=== PATIENT | female | born 1970 | race Caucasian/White ===

== ENCOUNTER → 2018-08-21 17:22 | Outpatient (CLI) | payer OTHER, SELFPAY ==
[2018-08-21 18:51] LABS: Basophils # 0.1 K/mm3 (0-0.2); Basophils % 0.5 % (0.1-2.0); Eosinophils # 0.2 K/mm3 (0.0-0.4); Eosinophils % 1.7 % (0.1-12.0); Hematocrit 44.2 % (37.0-47.0); Hemoglobin 14.1 g/dL (12.2-16.2); Lymphocytes # 3.2 K/mm3 (0.7-4.5); Lymphocytes % 28.6 % (10-50); Mean Corpuscular Hemoglobin 29.7 pg (27.0-31.2); Mean Corpuscular Volume 92.8 fl (81-99); Mean Platelet Volume 8.7 fl (7.4-10.4); Monocytes # 0.6 K/mm3 (0.1-1.0); Monocytes % 5.3 % (1.7-9.3); Neutrophils # 7.1 K/mm3 (1.8-7.8); Neutrophils % 63.9 % (37.0-80.0); Platelet Count 272 K/mm3 (142-424); Red Blood Count 4.76 M/mm3 (4.20-5.40); Red Cell Distribution Width 13.7 % (11.5-17.5); White Blood Count 11.1 K/mm3 (4.8-10.8)
[2018-08-21 19:08] LABS: Alanine Aminotransferase 36 U/L (12-78); Albumin Level 3.3 gm/dL (3.4-5.0); Albumin/Globulin Ratio 0.7 (1.1-1.8); Alkaline Phosphatase 61 U/L (46-116); Anion Gap 12.7 mEq/L (5-15); Aspartate Amino Transferase 17 U/L (15-37); Bilirubin,Total 0.5 mg/dL (0.2-1.0); Blood Urea Nitrogen 12 mg/dL (7-18); Calcium 9.2 mg/dL (8.5-10.1); Carbon Dioxide 30 mmol/L (21.0-32.0); Chloride 102 mmol/L (98-107); Chol/HDL Ratio 3.5 (1-3.5); Cholesterol 152 mg/dL (140-200); Estimated Glomerular Filt Rate 90 ml/min (>60); GFR (African American) 109 ML/MIN (>60); Globulin 4.7 gm/dl (1.3-3.2); Glucose 78 mg/dL (74-106); HDL Cholesterol 44 mg/dL (29-89); LDL Cholesterol 92 mg/dL (0-130); Potassium 3.7 mmoL/L (3.5-5.1); Sodium 141 mmol/L (136-145); T4 (Thyroxine) 9.1 ug/dl (4.7-13.3); Thyroid Stimulating Hormone 2.73 uIU/ml (0.358-3.740); Triglycerides 79 mg/dL (30-200); VLDL Cholesterol 16 mg/dL (0-40)
[2018-08-25 09:33] LABS: Vitamin D 25 Hydroxy 30.4 ng/mL (30.0-100.0)
== END ==
PROVIDERS: Visit Provider Nurse Practitioner Family
DX: I10 Essential (primary) hypertension (principal)
CPT/HCPCS: 80053; 80061; 82652; 84436; 84443; 85025

== ENCOUNTER → 2018-09-18 14:11 | Outpatient (CLI) | payer OTHER, SELFPAY | PROVIDERS: PCP Emergency Medicine; Visit Provider Internal Medicine | DX: R06.02 Shortness of breath (principal) | CPT/HCPCS: 93306 ==

== ENCOUNTER → 2018-10-02 10:11 | Outpatient (CLI) | payer OTHER, SELFPAY ==
[2018-10-02 11:32] LABS: Blood Urea Nitrogen 17 mg/dL (7-18); Carbon Dioxide 31 mmol/L (21.0-32.0); Chloride 102 mmol/L (98-107); Estimated Glomerular Filt Rate 67 ml/min (>60); GFR (African American) 81 ML/MIN (>60); Glucose 88 mg/dL (74-106); Sodium 141 mmol/L (136-145)
== END ==
PROVIDERS: Visit Provider Physician Assistant
DX: I10 Essential (primary) hypertension (principal); R06.02 Shortness of breath; R60.9 Edema, unspecified
CPT/HCPCS: 36415; 80048

== ENCOUNTER → 2018-11-10 12:38 | Outpatient (CLI) | payer OTHER, SELFPAY | PROVIDERS: PCP Nurse Practitioner Family; Visit Provider Internal Medicine Cardiovascular Disease | DX: I10 Essential (primary) hypertension (principal); R06.02 Shortness of breath; R40.0 Somnolence; R60.0 Localized edema; G47.33 Obstructive sleep apnea (adult) (pediatric) | CPT/HCPCS: 95806 ==

== ENCOUNTER → 2019-01-08 09:51 | Outpatient (CLI) | payer OTHER, SELFPAY ==
[2019-01-08 13:47] LABS: Anion Gap 12.2 mEq/L (5-15); Blood Urea Nitrogen 13 mg/dL (7-18); Calcium 9.4 mg/dL (8.5-10.1); Carbon Dioxide 29 mmol/L (21.0-32.0); Chloride 103 mmol/L (98-107); Creatinine,Serum 0.96 mg/dL (0.55-1.02); Estimated Glomerular Filt Rate 62 ml/min (>60); GFR (African American) 75 ML/MIN (>60); Glucose 110 mg/dL (74-106); Potassium 4.2 mmoL/L (3.5-5.1); Sodium 140 mmol/L (136-145)
== END ==
PROVIDERS: Visit Provider Internal Medicine Cardiovascular Disease
DX: R06.02 Shortness of breath (principal); I10 Essential (primary) hypertension; G47.33 Obstructive sleep apnea (adult) (pediatric); R60.0 Localized edema
CPT/HCPCS: 36415; 80048

== ENCOUNTER → 2019-01-13 14:57 | Outpatient (CLI) | payer OTHER, SELFPAY | PROVIDERS: PCP Nurse Practitioner Family; Visit Provider Nurse Practitioner Family | DX: G47.33 Obstructive sleep apnea (adult) (pediatric) (principal) | CPT/HCPCS: 94762 ==

== ENCOUNTER → 2019-02-24 14:15 | Outpatient (CLI) | payer OTHER, SELFPAY ==
[2019-02-24 14:41] LABS: Amphetamine/Metha Screen,Urine Negative ng/mL (<1000); Barbiturates Screen,Urine Negative ng/mL (<200); Benzodiazepines Screen,Urine Negative ng/mL (<200); Cannabinoid Screen,Urine Negative ng/mL (<50); Cocaine Screen,Urine Negative ng/mL (<300); Methadone Screen,Urine Negative ng/mL (<300); Opiate Screen,Urine Negative ng/mL (<300); Phencyclidine Screen,Urine Negative ng/mL (<25)
== END ==
PROVIDERS: Visit Provider Nurse Practitioner Family
DX: E66.9 Obesity, unspecified (principal)
CPT/HCPCS: 80305

== ENCOUNTER → 2019-08-31 11:42 | Outpatient (CLI) | payer OTHER, SELFPAY ==
[2019-08-31 13:23] LABS: Anion Gap 10.8 mEq/L (5-15); Blood Urea Nitrogen 14 mg/dL (7-18); Calcium 8.9 mg/dL (8.5-10.1); Carbon Dioxide 31 mmol/L (21.0-32.0); Chloride 106 mmol/L (98-107); Creatinine,Serum 0.93 mg/dL (0.55-1.02); Estimated Glomerular Filt Rate 64 ml/min (>60); GFR (African American) 78 ML/MIN (>60); Glucose 89 mg/dL (74-106); Potassium 3.8 mmoL/L (3.5-5.1); Sodium 144 mmol/L (136-145)
== END ==
PROVIDERS: Physician Assistant; Visit Provider Urology
DX: G47.33 Obstructive sleep apnea (adult) (pediatric) (principal); I10 Essential (primary) hypertension; R60.9 Edema, unspecified
CPT/HCPCS: 36415; 80048; 83880

== ENCOUNTER → 2019-09-09 07:49 | Outpatient (CLI) | payer OTHER, SELFPAY ==
--- NOTE | 2019-09-09 07:54 | CA_ITS ---
APPROVED REPORT Panel Flow Machine Operator: Aye Christensen RVT Study Quality: Adequate Indications: sob,edema,HTN Risk Factors Hypertension Obesity Renal Artery Doppler Origin (R) 172.1/ cm/sec Proximal (R) 136.9/ cm/sec Mid (R) 110.4/ cm/sec Distal (R) 122.3/ cm/sec Renal Aorta Ratio (R) 2.03 Segmental A. (R) 29.2/12.9 cm/sec RI: 0.55 Segmental A. Sup (R) 29.2/12.9 cm/sec Segmental A. Mid (R) 25.9/13.3 cm/sec Segmental A. Inf (R) 18.5/8.9 cm/sec Origin (L) 104.7/ cm/sec Proximal (L) 109.7/ cm/sec Mid (L) 82.4/ cm/sec Distal (L) 70.6/ cm/sec Renal Aorta Ratio (L) 1.29 Segmental A. (L) 50.8/16.7 cm/sec RI: 0.67 Segmental A. Sup (L) 50.8/16.7 cm/sec Segmental A. Mid (L) 41.6/16.7 cm/sec Segmental A. Inf (L) 32.5/13.5 cm/sec Renal Measurements Kidney Size (R) 10.0x8.2 cm Cortical Thickness (R) 1.2 cm Kidney Size (L) 10.4x7.4 cm Cortical Thickness (L) 1.7 cm Conclusion Study suggests no evidence of bilateral renal artery stenosis. Electronically signed by : Galen Feliz MD 09/11/2019 17:11:07
--- NOTE | 2019-09-09 07:54 | CA_ITS ---
APPROVED REPORT EXAM: Comprehensive 2D, Doppler, and color-flow Echocardiogram Flour Mixer Helper: Pili Santana RT(R) Ht: 5 ft 7 in Wt: 288lbs BSA: 2.36 BP: 117/96 mmHg Indications: Edema, HTN, obesity, CLEO, SOB 2D Dimensions LVOT 1.80 cm (M/F) 1.5-2.5 M-Mode Dimensions RVDd 3.14 cm (0.9-2.6) LVDd 5.11 cm (3.5-5.7) LVDs 3.18 cm (3.5-5.7) IVSd 1.03 cm (0.6-1.1) PWd 0.99 cm (0.6-1.1) EF (Teich) 67.60% FS 37.80% EDV (Teich) 124.40 mL ESV (Teich) 40.30 mL LV Diastology E/A Ratio 1.24 Mitral Valve MV A Velocity 75.00 (40-130 cm/s) Left Ventricle Left atrium is mildly enlarged, left ventricle is normal size, mild concentric left ventricular hypertrophy, visually estimated ejection fraction 55% with no regional wall motion abnormality. Grade 1 diastolic dysfunction seen without tissue Doppler evidence of raise left atrial pressure. Right Ventricle Right atrium and right ventricle mildly enlarged with normal contractility. Aortic Valve Aortic valve is grossly normal, there is no aortic stenosis aortic insufficiency. Mitral Valve Mitral valve is grossly normal, there is mild mitral regurgitation. Tricuspid Valve Tricuspid valve is grossly normal, there is mild tricuspid rotation. Pulmonic Valve Pulmonic valve is poorly visualized. Great Vessels Aortic root is normal size. Pericardium No significant pericardial effusion noted. Conclusion 1. Mild biatrial enlargement, normal left ventricular size, mild concentric left ventricular hypertrophy, visually estimated ejection fraction 55% with no regional wall motion abnormality, grade 1 diastolic dysfunction seen without tissue Doppler evidence of raise left atrial pressure. 2. Mildly enlarged right ventricle with normal contractility. 3. Mild mitral and tricuspid regurgitation. 4. No significant pericardial effusion noted. Electronically signed by : Darci Crowe, 09/10/2019 15:48:45
== END ==
PROVIDERS: PCP Emergency Medicine; Visit Provider Urology
DX: R06.02 Shortness of breath (principal); I10 Essential (primary) hypertension; R60.9 Edema, unspecified
CPT/HCPCS: 93306; 93976

== ENCOUNTER → 2019-09-21 14:17 | Outpatient (CLI) | payer OTHER, SELFPAY ==
[2019-09-21 15:46] LABS: Blood Urea Nitrogen 14 mg/dL (7-18); Calcium 9.1 mg/dL (8.5-10.1); Carbon Dioxide 31 mmol/L (21.0-32.0); Chloride 104 mmol/L (98-107); Creatinine,Serum 0.86 mg/dL (0.55-1.02); Estimated Glomerular Filt Rate 70 ml/min (>60); GFR (African American) 85 ML/MIN (>60); Glucose 115 mg/dL (74-106); Sodium 143 mmol/L (136-145)
== END ==
PROVIDERS: Visit Provider Nurse Practitioner Family
DX: G47.33 Obstructive sleep apnea (adult) (pediatric) (principal); I10 Essential (primary) hypertension
CPT/HCPCS: 36415; 80048

== ENCOUNTER → 2020-08-31 09:26 | Outpatient (CLI) | payer OTHER, SELFPAY ==
--- NOTE | 2020-08-31 09:27 | CT_ITS ---
PROCEDURE: CT HEAD/BRAIN WO/W CON CLINICAL INDICATION: Gradual hearing loss with ear pain COMPARISON: No exams were available for comparison TECHNIQUE: IV Contrast: 100ML Isovue 370 Axial images obtained. All CT scans at the facility use one or more dose reduction, viz: automated exposure control, ma/kV adjustment per patient size (including targeted exams where dose is matched to indication, i.e. head), or iterative reconstruction technique. FINDINGS: No midline shift, mass effect, intracranial hemorrhage, hydrocephalus, or extra-axial fluid collection is evident. No enhancing lesions are evident. The skull base has an unremarkable appearance. The temporal bones are included on this exam per routine CT head protocol however, this does not represent a temporal bone CT which would be performed with different technique.. No mastoid effusion is evident. The calvarium has an unremarkable appearance. There is mild mucosal thickening of the maxillary and ethmoid sinuses. IMPRESSION: Negative CT head without and with contrast Mild sinus disease Dictated by: Galen Feliz MD 08/31/2020 19:03 Galen Feliz MD in [place] 08/31/2020 19:03
--- NOTE | 2020-08-31 09:31 | MM_ITS ---
PROCEDURE: MM DIG SCREENING MAMM BI W/CAD Referring Doctor: Landry Al Patient Age:49Y CLINICAL INDICATION: screening no hormones. No new complaints family history-noncontributory COMPARISON: MG DMSB DIG MAMM-SCREEN GWENDOLYN from 01/24/2015 TECHNIQUE: Standard CC and MLO images were obtained. R2 CAD reviewed. Bilateral digital breast tomosynthesis included. FINDINGS: Minimal residual fibroglandular elements with of moderate diffuse fatty replacement yielding lower density breast. Mammography tends to be more optimal screening tool in breast of this lower density. But there is some very minor observations bilaterally which I believe are most likely stable features but would benefit from six-month follow-up to confirm stability Right breast stable mammogram with no new areas of significant concern. Only note a subtle barely evident tiny up to 5 mm low-density nodule which is likely small oil cyst (or possibly tiny intramammary node) given its central low-density/fat density. This is located superior breast retroareolar region and most notable on today's cc tomosynthesis image this 62.. This was only questionably appreciable on previous study but this may be due to its low-density along with small size. Left breast Small 5 mm triangular density central breast I believe is a stable feature since previous CC image; although similar size it is slightly more evident on today's CC view and CC tomosynthesis image 51. However I believe it is a stable density and appears to dissipate on the MLO views.. . Follow-up in 6 months for to verify stability for both of these above small/subtle areas would be of benefit and suggested IMPRESSION: No prominent Findings . Only very minor observations bilaterally which I believe are most likely stable benign features-. However since they are slightly more evident and apparent on today mammogram&tomosynthesis images, suggest six-month follow-up to fully confirm stability BI-RAD Category: 3 Probably Benign Finding Short Term Follow-up FOLLOW-UP: 6M 6 Month Follow-up the the the (A letter has been sent to the patient regarding results of the study.) Dictated by: Bernabe Ruth MD 09/03/2020 13:08 Bernabe Ruth MD in [place] 09/03/2020 13:08
== END ==
PROVIDERS: PCP Emergency Medicine; Visit Provider Otolaryngology
DX: D33.3 Benign neoplasm of cranial nerves (principal); H90.5 Unspecified sensorineural hearing loss; Z12.31 Encounter for screening mammogram for malignant neoplasm of breast
CPT/HCPCS: 70470; 77063; 77067; Q9967

== ENCOUNTER → 2020-10-19 07:05 | Outpatient (CLI) | payer OTHER, SELFPAY ==
[2020-10-19 07:49] LABS: Basophils # 0.1 K/mm3 (0-0.2); Basophils % 0.7 % (0.1-2.0); Eosinophils # 0.1 K/mm3 (0.0-0.4); Eosinophils % 2.1 % (0.1-12.0); Hematocrit 41.7 % (37.0-47.0); Hemoglobin 13.2 g/dL (12.2-16.2); Lymphocytes # 2.4 K/mm3 (0.7-4.5); Mean Corpuscular HGB Conc 31.6 g/dL (31.8-35.4); Mean Corpuscular Hemoglobin 29.4 pg (27.0-31.2); Monocytes # 0.4 K/mm3 (0.1-1.0); Monocytes % 5.7 % (1.7-9.3); Neutrophils # 3.8 K/mm3 (1.8-7.8); Neutrophils % 56.5 % (37.0-80.0); Platelet Count 248 K/mm3 (142-424); Red Blood Count 4.48 M/mm3 (4.20-5.40); Red Cell Distribution Width 13.2 % (11.5-17.5); White Blood Count 6.8 K/mm3 (4.8-10.8)
[2020-10-19 08:05] LABS: Alanine Aminotransferase 41 U/L (12-78); Albumin Level 4.2 g/dl (3.5-5.0); Alkaline Phosphatase 52 U/L (38-126); Anion Gap 9.2 mEq/L (5-15); Aspartate Amino Transferase 36 U/L (14-36); Bilirubin,Direct 0.1 mg/dl (0.0-0.4); Bilirubin,Indirect 0.6 mg/dL (0.0-0.9); Bilirubin,Total 0.7 mg/dl (0.2-1.3); Bilirubin,Unconjugated 0.6 mg/dL (0.0-1.1); Blood Urea Nitrogen 19 mg/dl (7-17); Calcium 9.5 mg/dl (8.4-10.2); Carbon Dioxide 32 mmol/L (22.0-30.0); Chloride 103 mmol/L (98-107); Chol/HDL Ratio 3.4 (1-3.5); Cholesterol 146 mg/dl (140-200); Estimated Glomerular Filt Rate 66 ml/min (>60); GFR (African American) 80 ML/MIN (>60); Glucose 110 mg/dl (74-100); HDL Cholesterol 43 mg/dl (40-60); Potassium 4.2 mmoL/L (3.5-5.1); Sodium 140 mmol/L (136-145); Total Protein,Serum 7.6 g/dl (6.3-8.2); Triglycerides 105 mg/dl (30-150); VLDL Cholesterol 21 mg/dL (0-40)
[2020-10-19 08:17] LABS: Direct LDL Cholesterol 86.39 mg/dL (100-129)
[2020-10-19 09:37] LABS: Hemoglobin A1C 5.4 % (4.0-6.0)
== END ==
PROVIDERS: Visit Provider Physician Assistant
DX: R06.02 Shortness of breath (principal); R60.9 Edema, unspecified; I10 Essential (primary) hypertension; E66.01 Morbid (severe) obesity due to excess calories
CPT/HCPCS: 36415; 80048; 80061; 80076; 83036; 85025

== ENCOUNTER → 2020-10-20 12:38 | Outpatient (CLI) | payer OTHER, SELFPAY ==
--- NOTE | 2020-10-20 12:38 | US_ITS ---
PROCEDURE: US KIDNEY CLINICAL INDICATION: I10 - Essential (primary) hypertension This is COMPARISON: US CA RENAL ARTERY DUPLEX from 09/09/2019 FINDINGS: The right kidney is [id number]. No hydronephrosis, cortical thinning, or renal mass or perinephric fluid collection is evident. The left kidney is [id number]. No hydronephrosis, cortical thinning, or renal mass or perinephric fluid collection is evident. IMPRESSION: Unremarkable bilateral renal ultrasound Dictated by: Galen Feliz MD 10/20/2020 18:31 Galen Feliz MD in [place] 10/20/2020 18:31
== END ==
PROVIDERS: PCP Emergency Medicine; Visit Provider Physician Assistant
DX: I10 Essential (primary) hypertension (principal); R60.9 Edema, unspecified; R06.02 Shortness of breath; E66.01 Morbid (severe) obesity due to excess calories
CPT/HCPCS: 76770

== ENCOUNTER → 2021-07-04 14:24 | Outpatient (CLI) | payer OTHER, SELFPAY | PROVIDERS: Visit Provider Family Medicine | DX: Z20.822 Contact with and (suspected) exposure to COVID-19 (principal); U07.1 COVID-19 | CPT/HCPCS: C9803; U0003; U0005 ==

== ENCOUNTER 2021-07-14 09:32 | Emergency (ER) | payer OTHER, SELFPAY ==
[2021-07-14 09:49] VITALS: BP 139/100; PULSE 76; RESP 20; TEMP 36.8; O2SAT 98; BMI 45.7
--- NOTE | 2021-07-14 10:39 | HMH.EDUTC ---
[facility] [place] Impression: Post-COVID chronic cough Disposition: Home, Self-Care Condition on Discharge: Good Instructions: DI for Cough -- Adult Prescriptions: Benzonatate [Benzonatate 200mg Cap] 200 mg PO TID PRN 10 Days #30 cap PRN Reason: Cough Transmission Status: Pending to [facility] Promethazine/Dextromethorphan [Promethazine-Dm Syrup] 5 ml PO Q4H PRN 10 Days #180 ml PRN Reason: Cough Transmission Status: Pending to [facility] Referrals: Landry Al MD [Primary Care Provider] - Time of Disposition: : Medical Decision Making - [place] Inquiry Pt receiving controlled substance: No Vital Signs: 07/14/21 09:49 Temperature 98.2 F Temperature Source Oral Pulse Rate [Brachial] 76 Respiratory Rate 20 Blood Pressure [Right Arm] 139/100 H Blood Pressure Mean [Right Arm] 113 Blood Pressure Source [Right Arm] Automatic Cuff Blood Pressure Position [Right Arm] Sitting 02 Sat by Pulse Oximetry 98 - Radiology Data #1 Image(s): Chest Image Reviewed: Yes I have reviewed radiologist's interpretation Preliminary Findings: Normal/NAD PROCEDURE: XR CHEST 2V CLINICAL HISTORY: cough COMPARISON: CR CXR CHEST(2 VIEWS-NOT PORTABLE) from 05/23/2015 CR CXR2V XR chest 2V from 10/06/2018 CR XR CHEST 2V from 07/22/2019 FINDINGS: The right hemidiaphragm is elevated with a heart slightly shifted toward the left. There is some prominence of the right hilum felt to represent pulmonary vasculature. No lobar consolidation or collapse. No acute bony abnormalities. IMPRESSION: No change with no acute finding Dictated by: Galen Feliz MD 07/14/2021 11:10 Galen Feliz MD in [place] 07/14/2021 11:10 [facility] [place] - General Stated complaint: bad cough Time Seen by Provider: 07/14/21 10:39 Mode of Arrival: Ambulatory Source of Information: Patient Limitations: No Limitations Description of Symptoms (Recalled from Triage Doc. by RN): head pressure. coughing HEENT Symptoms (Recalled from RN notes): Yes Resp Symptoms (Recalled from RN notes): Yes Skin Symptoms (Recalled from RN notes): No MS Symptoms (Recalled from RN notes): No Functional Status (Recalled from RN notes): yes - History of Present Illness Provider Complaint: Patient was diagnosed with COVID on 07/04/2021. Last fever was 2 days ago. She states that she is feeling better, but she is coughing so hard that she vomits. She is using an inhaler, but it has not helped with the cough. She does not smoke and has no history of asthma. Onset (ago): day(s) (10) Location: chest Relieving factors: none Exacerbating factors: none Associated symptoms: cough, nausea/vomiting Treatments prior to arrival: other (albuterol inhaler) - Related Data Previous Rx's Medication Instructions Recorded lisinopril 20 2 tab PO DAILY #180 tab 01/23/21 mg-hydrochlorothiazide 12.5 mg tablet metoprolol succinate 50 mg 50 mg PO DAILY #90 tab 01/23/21 tablet,extended release 24 hr spironolactone 50 mg tablet 50 mg PO DAILY #90 tab 01/23/21 albuterol sulfate 90 mcg/actuation 2 puff INHALATION QID PRN #8.5 g 07/04/21 aerosol inhaler azithromycin 500 mg tablet 500 mg PO DAILY 3 Days #3 tab 07/04/21 fluticasone propionate 50 1 spray INTRANASAL DAILY #16 g 07/04/21 mcg/actuation nasal spray,suspension methylprednisolone 4 mg tablets in See Rx Instructions PO PER PKG DIR 07/04/21 a dose pack #21 tab vortioxetine 10 mg tablet 10 mg PO DAILY #30 tab 07/04/21 Benzonatate [Benzonatate 200mg Cap] 200 mg PO TID PRN 10 Days #30 cap 07/14/21 Promethazine/Dextromethorphan 5 ml PO Q4H PRN 10 Days #180 ml 07/14/21 [Promethazine-Dm Syrup] Allergies Allergy/AdvReac Type Severity Reaction Status Date / Time No Known Allergies Allergy Verified 07/04/21 10:49 - Worker's Comp Is this a Worker's Comp case?: No Is this an H Worker's Comp?: No Is this a [place] Worker's Comp?: No [facility] History - Hep
--- NOTE | 2021-07-14 10:43 | XR_ITS ---
PROCEDURE: XR CHEST 2V CLINICAL HISTORY: cough COMPARISON: CR CXR CHEST(2 VIEWS-NOT PORTABLE) from 05/23/2015 CR CXR2V XR chest 2V from 10/06/2018 CR XR CHEST 2V from 07/22/2019 FINDINGS: The right hemidiaphragm is elevated with a heart slightly shifted toward the left. There is some prominence of the right hilum felt to represent pulmonary vasculature. No lobar consolidation or collapse. No acute bony abnormalities. IMPRESSION: No change with no acute finding Dictated by: Galen Feilz MD 07/14/2021 11:10 Galen Feliz MD in [place] 07/14/2021 11:10
[2021-07-14 11:27] VITALS: BP 139/100; PULSE 76; RESP 18; TEMP 36.8
== END 2021-07-14 11:27 | disposition home or self-care (01) ==
PROVIDERS: Emergency Provider Physician Assistant; PCP Emergency Medicine
DX: R05.8 Other specified cough (principal)
CPT/HCPCS: 71046; 99202; G0463

== ENCOUNTER → 2021-10-24 11:35 | Outpatient (CLI) | payer OTHER, SELFPAY ==
[2021-10-24 11:46] LABS: Microscopic, Urine URINE MICROSCOPIC (MICROSCOPIC)
[2021-10-24 12:22] LABS: Basophils # 0.1 K/mm3 (0-0.2); Basophils % 0.9 % (0.1-2.0); Eosinophils # 0.3 K/mm3 (0.0-0.4); Eosinophils % 3.2 % (0.1-12.0); Hematocrit 43.8 % (37.0-47.0); Lymphocytes # 3.4 K/mm3 (0.7-4.5); Lymphocytes % 34.1 % (10-50); Mean Corpuscular Hemoglobin 30.4 pg (27.0-31.2); Mean Platelet Volume 8.1 fl (7.4-10.4); Monocytes # 0.6 K/mm3 (0.1-1.0); Monocytes % 6.3 % (1.7-9.3); Neutrophils # 5.5 K/mm3 (1.8-7.8); Neutrophils % 55.5 % (37.0-80.0); Platelet Count 255 K/mm3 (142-424); Red Blood Count 4.61 M/mm3 (4.20-5.40); Red Cell Distribution Width 13.7 % (11.5-17.5); White Blood Count 9.9 K/mm3 (4.8-10.8)
[2021-10-24 12:23] LABS: Appearance,Urine CLEAR (Clear); Bilirubin,Urine Negative (Negative); Blood, Urine Negative (Negative); Color,Urine YELLOW (Yellow); Glucose,Urine (UA) Negative (Negative); Ketones,Urine Negative (Negative); Leukocyte Esterase,Urine TRACE (Negative); Nitrate,Urine Negative (Negative); Protein,Urine Negative (Negative); Specific Gravity, Urine 1.015 (1.005-1.030); Urobilinogen,Urine 0.2 EU/dl (0.2)
[2021-10-24 12:28] LABS: Chloride 101 mmol/L (98-107); Potassium 3.9 mmoL/L (3.5-5.1); Sodium 138 mmol/L (136-145)
[2021-10-24 12:30] LABS: Bilirubin,Unconjugated 0.4 mg/dL (0.0-1.1); Blood Urea Nitrogen 17 mg/dl (7-17); Estimated Glomerular Filt Rate 66 ml/min (>60); GFR (African American) 80 ML/MIN (>60)
[2021-10-24 12:31] LABS: Alanine Aminotransferase 27 U/L (12-78); Albumin Level 4.4 g/dl (3.5-5.0); Alkaline Phosphatase 56 U/L (38-126); Anion Gap 9.9 mEq/L (5-15); Aspartate Amino Transferase 30 U/L (14-36); Bilirubin,Direct 0.3 mg/dl (0.0-0.4); Bilirubin,Indirect 0.4 mg/dL (0.0-0.9); Bilirubin,Total 0.7 mg/dl (0.2-1.3); Calcium 9.6 mg/dl (8.4-10.2); Carbon Dioxide 31 mmol/L (22.0-30.0); Chol/HDL Ratio 4.1 (1-3.5); Cholesterol 152 mg/dl (140-200); Glucose 96 mg/dl (74-100); HDL Cholesterol 37 mg/dl (40-60); Total Protein,Serum 8.1 g/dl (6.3-8.2); Triglycerides 135 mg/dl (30-150); VLDL Cholesterol 27 mg/dL (0-40)
[2021-10-24 12:37] LABS: Bacteria,Urine Trace /lpf; Squamous Epithelial Cell,Urine Occasional #/hpf (0-5); WBC,Urine Occasional #/hpf (0-3)
[2021-10-24 12:42] LABS: Direct LDL Cholesterol 90.13 mg/dL (100-129)
[2021-10-24 12:47] LABS: Troponin I < 0.01 ng/ml (0.00-0.034)
[2021-10-24 12:48] LABS: Free T4 (Free Thyroxine) 1.18 ng/dl (0.78-2.19)
[2021-10-24 13:02] LABS: Thyroid Stimulating Hormone 2.58 uIU/mL (0.465-4.68)
== END ==
PROVIDERS: PCP Emergency Medicine; Visit Provider Physician Assistant
DX: R06.02 Shortness of breath (principal); R35.0 Frequency of micturition; E66.01 Morbid (severe) obesity due to excess calories; R30.0 Dysuria; I63.9 Cerebral infarction, unspecified; E11.9 Type 2 diabetes mellitus without complications; I11.9 Hypertensive heart disease without heart failure; G47.33 Obstructive sleep apnea (adult) (pediatric); Z68.42 Body mass index [BMI] 45.0-49.9, adult
CPT/HCPCS: 36415; 80048; 80061; 80076; 81001; 84439; 84443; 84484; 85025; 87086; 87088

== ENCOUNTER → 2021-11-06 16:00 | Outpatient (CLI) | payer OTHER, SELFPAY | PROVIDERS: Visit Provider Physician Assistant | DX: N39.0 Urinary tract infection, site not specified (principal) | CPT/HCPCS: 87086 ==

== ENCOUNTER → 2021-11-08 06:36 | Outpatient (CLI) | payer OTHER, SELFPAY ==
--- NOTE | 2021-11-08 06:37 | CA_ITS ---
APPROVED REPORT Exam: Pharmacologic Technologist: Teresa Mcdermott Ht: 5 ft 7 in Wt: 304 lbs BSA: 2.42 m2 HR: 58 bpm BP: 117/89 mmHg Indications: Abnormal EKG Medical History Medications: Lisinopril,,,,, Aspirin,,,,, Metoprolol,,,,, Flonase,,,,, Albuterol,,,,, Norvasc,,,,, Protonix,,,,, Aldactone,,,,, Stress Test Details Test: LEXISCAN HR Resting HR: 59 bpm Max Heart Rate (APMHR): 169.859812 bpm Max HR Achieved: 90 bpm Target HR (85% APMHR): 143.842445 bpm % of APMHR: 53.25 Recovery HR: 70 bpm BP Resting BP: 117.0/89.0 mmHg Max BP: 135.0/81.0 mmHg Recovery BP: 119.0/80.0 mmHg ECG Resting ECG: Sinus bradycardia, low voltage QRS, rightward axis Clinical Exercise duration: 04:00 min Highest Stage Achieved: Exercise capacity: 1.0 METs Stress ECG Conclusion Symptoms: Shortness of air, mild head discomfort. No chest pain. Arrhythmias/Ectopy: None ST-T Changes: No significant changes. Conclusion: Unremarkable Lexiscan stress. Myoview images reported separately. Test Summary REST . . . . . . . Resting REST 04:14 . . 59 . 117/ 89 . . Stage 1 . . . . . . . Myoview Injected Stage 1 01:00 . . 85 . . . . Stage 2 01:00 . . 83 . . . . Stage 3 01:00 . . 81 . 122/ 90 . . Stage 4 01:00 . . 75 . 135/ 81 . Stop exercise at 04:00 RECOVERY 01:00 . . 71 . . . . RECOVERY 02:00 . . 69 . 130/ 82 . . RECOVERY 03:00 . . 67 . 130/ 82 . . RECOVERY 03:37 . . 75 . 119/ 80 . . Electronically signed by : Darci Crowe MD 11/08/2021 20:14:06
--- NOTE | 2021-11-08 06:37 | NM_ITS ---
APPROVED REPORT Exam: Nuclear Stress Test Indication: HTN, C.P., SOB, FATIGUE, MORBID OBESITY, ABN EKG, SLEEP APNEA Patient Location: Outpatient Stress Tech: Teresa Mcdermott [place] Tech:Kristen Lan, ARRT, RT (R)(N) Ht: 5 ft 7 in Wt: 295 lbs Bra Size: DD HR: 58 bpm BP: 117/81 mmHg BSA: 2.39 m2 BMI: 46.1 History: HTN, C.P., SOB, FATIGUE, MORBID OBESITY, ABN EKG, SLEEP APNEA Procedure: Patient received a 0.4 mg of intravenous Lexiscan, resting heart rate 58 bpm, resting blood pressure 117/89 mmHg, with Lexiscan maximum heart rate achived was 76 bpm which is Less than 85 % of the maximum predicted heart rate and blood pressure was 135/81 mmHg. With Lexiscan, patient denied any complaint of chest pain. Electrocardiogram Resting electrocardiogram showed sinus rhythm, with Lexiscan there is less than 1.[address] segment depression noted from the baseline EKG. The EKG portion of the Lexiscan is nondiagnostic. Cardiac Stress and Resting SPECT Images: Cardiac Stress and Resting SPECT images were obtained using technetium 99m Myoview 32.5 mCi stress and 10.86 mCi at rest. Gated SPECT for analysis of segmental wall motion and calculation of the ejection fraction also done. Cardiac stress and rest SPECT images show a mild fixed defect in the anterior wall with normal contractility gated SPECT is likely secondary to soft tissue attenuation, no reversible ischemia seen, computer derived ejection fraction is 61% with no regional wall motion abnormality. Right ventricle is normal size and contractility. Conclusion: 1. The EKG portion of the Lexiscan is nondiagnostic. 2. No scintigraphic evidence of reversible ischemia seen, computer derived ejection fraction 61% with no regional wall motion abnormality, right ventricle is normal size and contractility. 3. Likely normal Lexiscan Myoview study. Electronically signed by : Darci Crowe MD 11/08/2021 20:17:47
== END ==
PROVIDERS: PCP Emergency Medicine; Visit Provider Physician Assistant
DX: R06.02 Shortness of breath (principal); R94.31 Abnormal electrocardiogram [ECG] [EKG]; M79.602 Pain in left arm; I10 Essential (primary) hypertension; E66.01 Morbid (severe) obesity due to excess calories; G47.33 Obstructive sleep apnea (adult) (pediatric); Z68.42 Body mass index [BMI] 45.0-49.9, adult
CPT/HCPCS: 78452; 93017; A9502; J2785

== ENCOUNTER → 2021-11-09 09:28 | Outpatient (CLI) | payer OTHER, SELFPAY ==
[2021-11-09 09:33] LABS: Microscopic, Urine URINE MICROSCOPIC (MICROSCOPIC)
[2021-11-09 11:39] LABS: Appearance,Urine CLEAR (Clear); Bilirubin,Urine Negative (Negative); Blood, Urine Negative (Negative); Color,Urine YELLOW (Yellow); Glucose,Urine (UA) Negative (Negative); Ketones,Urine Negative (Negative); Leukocyte Esterase,Urine Negative (Negative); Nitrate,Urine Negative (Negative); Protein,Urine Negative (Negative); Specific Gravity, Urine 1.025 (1.005-1.030); Urobilinogen,Urine 0.2 EU/dl (0.2)
[2021-11-09 12:21] LABS: Bacteria,Urine Trace /lpf; Mucus,Urine 1+ /lpf; WBC,Urine Occasional #/hpf (0-3)
== END ==
PROVIDERS: Visit Provider Physician Assistant
DX: N39.0 Urinary tract infection, site not specified (principal)
CPT/HCPCS: 81001

== ENCOUNTER → 2021-11-14 14:25 | Outpatient (CLI) | payer OTHER, SELFPAY ==
--- NOTE | 2021-11-14 14:25 | CT_ITS ---
FINAL REPORT CLINICAL HISTORY: recurrent UTI r/o kidney stone, CHRONIC UTI, SPASMS FINDINGS: Technique: Axial images through the abdomen and pelvis were performed by computed tomography. This study was performed with techniques to keep radiation doses as low as reasonably achievable (ALARA). Individualized dose reduction techniques using automated exposure control or adjustment of mA and/or kV according to the patient's size were employed. Abdomen: The lung bases are clear. There is moderate diffuse fatty infiltration of the liver. The gallbladder is contracted. The spleen is unremarkable. The pancreas is normal. The adrenals are normal. The aorta is normal in caliber. There is no hydronephrosis. There is no nephrolithiasis. There is a moderate sized fat-containing ventral hernia. Hernia defect measures 2.5 cm in transverse dimension. Pelvis: The appendix is not identified. There is scattered diverticuli throughout the descending and sigmoid colon. The urinary bladder is unremarkable. There is no free fluid or adenopathy. IMPRESSION: Moderate-sized fat-containing ventral hernia. Moderate fatty infiltration of the liver. Reviewed, Interpreted and Dictated by Guilherme Pete MD Transcribed by Marielos Santana Authenticated by Guilherme Pete MD on 11/14/2021 04:18:08 PM [facility]
== END ==
PROVIDERS: PCP Emergency Medicine; Visit Provider Physician Assistant
DX: R10.9 Unspecified abdominal pain (principal); N39.0 Urinary tract infection, site not specified
CPT/HCPCS: 74176

== ENCOUNTER → 2022-10-29 23:42 | Outpatient (CLI) | payer OTHER, SELFPAY ==
[2022-10-29 17:04] LABS: Alanine Aminotransferase 22 U/L (12-78); Albumin Level 4.2 g/dl (3.5-5.0); Albumin/Globulin Ratio 1.3 (1.1-1.8); Alkaline Phosphatase 59 U/L (38-126); Aspartate Amino Transferase 27 U/L (14-36); Bilirubin,Total 0.6 mg/dl (0.2-1.3); Blood Urea Nitrogen 19 mg/dl (7-17); Carbon Dioxide 31 mmol/L (22.0-30.0); Chloride 105 mmol/L (98-107); Chol/HDL Ratio 3.4 (1-3.5); Cholesterol 153 mg/dl (140-200); Estimated Glomerular Filt Rate 58 ml/min (>60); GFR (African American) 70 ML/MIN (>60); Globulin 3.3 g/dL (1.3-3.2); Glucose 85 mg/dl (74-100); HDL Cholesterol 45 mg/dl (40-60); Sodium 142 mmol/L (136-145); Total Protein,Serum 7.5 g/dl (6.3-8.2); Triglycerides 151 mg/dl (30-150); VLDL Cholesterol 30 mg/dL (0-40)
[2022-10-29 17:08] LABS: Basophils # 0.1 K/mm3 (0-0.2); Basophils % 1.3 % (0.1-2.0); Eosinophils # 0.1 K/mm3 (0.0-0.4); Eosinophils % 1.4 % (0.1-12.0); Hematocrit 43.3 % (37.0-47.0); Hemoglobin 14.1 g/dL (12.2-16.2); Lymphocytes # 2.6 K/mm3 (0.7-4.5); Lymphocytes % 28.1 % (10-50); Mean Corpuscular HGB Conc 32.6 g/dL (31.8-35.4); Mean Corpuscular Hemoglobin 29.9 pg (27.0-31.2); Mean Corpuscular Volume 91.8 fl (81-99); Monocytes # 0.5 K/mm3 (0.1-1.0); Neutrophils % 64.3 % (37.0-80.0); Platelet Count 280 K/mm3 (142-424); Red Blood Count 4.71 M/mm3 (4.20-5.40); Red Cell Distribution Width 13.4 % (11.5-17.5); White Blood Count 9.3 K/mm3 (4.8-10.8)
[2022-10-29 17:15] LABS: Direct LDL Cholesterol 86.33 mg/dL (100-129)
[2022-10-29 17:21] LABS: 25-OH Vitamin D, Total 39.2 ng/mL (30-100)
== END ==
PROVIDERS: PCP Student in an Organized Health Care Education/Training Program; Visit Provider Student in an Organized Health Care Education/Training Program
DX: I10 Essential (primary) hypertension (principal); E55.9 Vitamin D deficiency, unspecified; Z13.29 Encounter for screening for other suspected endocrine disorder; Z13.220 Encounter for screening for lipoid disorders; Z79.899 Other long term (current) drug therapy
CPT/HCPCS: 80053; 80061; 82306; 84443; 85025

== ENCOUNTER → 2022-11-02 07:15 | Outpatient (CLI) | payer OTHER, SELFPAY ==
--- NOTE | 2022-11-02 07:16 | CT_ITS ---
FINAL REPORT TECHNIQUE: Noncontrast CT exam of the abdomen and pelvis. This study was performed with techniques to keep radiation doses as low as reasonably achievable (ALARA). Individualized dose reduction techniques using automated exposure control or adjustment of mA and/or kV according to the patient''s size were employed. CLINICAL HISTORY: abd pain, h/o hernia COMPARISON: 11/14/2021 FINDINGS: Abdomen: Lung bases are clear. Liver, gallbladder, spleen, pancreas and adrenal glands have a normal CT appearance in their limited unenhanced state. There is a central abdominal wall hernia containing fat. Associated hernia defect measures 2.5 cm, unchanged from prior exam. The hernia sac has minimally enlarged up to 6.1 cm, previously measured 5.4 cm. The kidneys show no stone disease or obstruction. No obvious renal mass is present. No ureteral stones are present. Pelvis: No distal ureteral stones are seen. There is mild diverticulosis of the descending and sigmoid colon without evidence of diverticulitis. Appendix is normal. Bladder is unremarkable. No fluid collection or adenopathy is seen. IMPRESSION: 1. No acute findings. 2. Minimal enlargement of abdominal wall hernia sac. Reviewed, Interpreted and Dictated by Ernesto Plasencia MD Transcribed by María Spear Authenticated and [facility]
== END ==
PROVIDERS: PCP Emergency Medicine; Visit Provider Student in an Organized Health Care Education/Training Program
DX: R10.9 Unspecified abdominal pain (principal); K43.9 Ventral hernia without obstruction or gangrene
CPT/HCPCS: 74176

== ENCOUNTER → 2023-04-29 23:07 | Outpatient (CLI) | payer OTHER, SELFPAY ==
[2023-04-29 18:31] LABS: Basophils % 0.5 % (0.1-2.0); Eosinophils # 0.2 K/mm3 (0.0-0.4); Eosinophils % 2.6 % (0.1-12.0); Hematocrit 42.4 % (37.0-47.0); Hemoglobin 13.2 g/dL (12.2-16.2); Lymphocytes # 2.3 K/mm3 (0.7-4.5); Lymphocytes % 30.2 % (10-50); Mean Corpuscular HGB Conc 31.2 g/dL (31.8-35.4); Mean Corpuscular Hemoglobin 29.3 pg (27.0-31.2); Mean Corpuscular Volume 94.1 fl (81-99); Mean Platelet Volume 9.9 fl (7.4-10.4); Monocytes # 0.5 K/mm3 (0.1-1.0); Monocytes % 6.3 % (1.7-9.3); Neutrophils # 4.5 K/mm3 (1.8-7.8); Neutrophils % 60.4 % (37.0-80.0); Platelet Count 264 K/mm3 (142-424); Red Cell Distribution Width 13.6 % (11.5-17.5); White Blood Count 7.5 K/mm3 (4.8-10.8)
[2023-04-29 18:38] LABS: Alanine Aminotransferase 33 U/L (12-78); Albumin/Globulin Ratio 1.1 (1.1-1.8); Alkaline Phosphatase 74 U/L (38-126); Anion Gap 11.9 mEq/L (5-15); Aspartate Amino Transferase 36 U/L (14-36); Bilirubin,Total 0.5 mg/dl (0.2-1.3); Blood Urea Nitrogen 13 mg/dl (7-17); Calcium 9.2 mg/dl (8.4-10.2); Carbon Dioxide 31 mmol/L (22.0-30.0); Chloride 104 mmol/L (98-107); Chol/HDL Ratio 4.1 (1-3.5); Cholesterol 153 mg/dl (140-200); Estimated Glomerular Filt Rate 75 ml/min (>60); GFR (African American) 91 ML/MIN (>60); Globulin 3.8 g/dL (1.3-3.2); Glucose 92 mg/dl (74-100); HDL Cholesterol 37 mg/dl (40-60); Magnesium 1.9 mg/dl (1.6-2.3); Potassium 3.9 mmoL/L (3.5-5.1); Sodium 143 mmol/L (136-145); Total Protein,Serum 7.8 g/dl (6.3-8.2); Triglycerides 164 mg/dl (30-150); VLDL Cholesterol 33 mg/dL (0-40)
[2023-04-29 18:51] LABS: Direct LDL Cholesterol 85.43 mg/dL (100-129)
[2023-04-29 19:10] LABS: Thyroid Stimulating Hormone 3.02 uIU/mL (0.465-4.68)
== END ==
PROVIDERS: PCP Physician Assistant; Visit Provider Physician Assistant
DX: I10 Essential (primary) hypertension (principal); N39.0 Urinary tract infection, site not specified; E66.9 Obesity, unspecified; Z68.41 Body mass index [BMI] 40.0-44.9, adult; Z79.899 Other long term (current) drug therapy
CPT/HCPCS: 80053; 80061; 82306; 83735; 84443; 85025; 87086

== ENCOUNTER → 2023-06-04 09:27 | Outpatient (CLI) | payer OTHER, SELFPAY ==
--- NOTE | 2023-06-04 09:34 | XR_ITS ---
FINAL REPORT CLINICAL HISTORY: R Knee pain FINDINGS: Three-view of the right knee were obtained. There is no acute fracture or dislocation. There are moderate degenerative changes. The soft tissues are unremarkable. IMPRESSION: Moderate degenerative change. Reviewed, Interpreted and Dictated by Liang Palmer III, MD Transcribed by Daniel Buitrago Authenticated and . [facility]
--- NOTE | 2023-06-04 09:34 | XR_ITS ---
FINAL REPORT CLINICAL HISTORY: L Knee paion FINDINGS: 4 views of the left knee were obtained. There is no acute fracture or dislocation. There is mild degenerative change. The soft tissues are unremarkable. IMPRESSION: Mild degenerative change. Reviewed, Interpreted and Dictated by Liang Palmer III, MD Transcribed by Daniel Buitrago Authenticated and [facility]
== END ==
PROVIDERS: PCP Physician Assistant; Visit Provider Physician Assistant
DX: M25.561 Pain in right knee (principal); M25.562 Pain in left knee
CPT/HCPCS: 73564

== ENCOUNTER 2023-07-04 13:00 | Outpatient (RCR) | payer OTHER, SELFPAY ==
--- NOTE | 2023-06-18 14:15 | HMH.PTOPEV ---
PT Outpatient Evaluation Rehab PT Outpatient Evaluation Start: 06/18/23 13:19 Freq: Status: Active Protocol: Document 06/18/23 13:19 GRACETRINIDAD (Rec: 06/18/23 14:15 BINTA [id number]) E-signed By Ruby Padron, PT Outpatient Therapy Subjective History Subjective History Pt is a 52 y/o female who reports L>R chronic knee pain secondary to knee osteoarthritis. Pt reports gradual worsening of pain overtime. Pt had knee radiographs performed at [facility] on 06/04/23 with the right knee showing moderate degenerative changes and the left showing mild degenerative changes. Pt reports she had one injection in each knee from Dr. Flynn on which did help some with pain. Pt reports pain worsens with activity and is worse at night time. Pt reports she lives in an apartment and has to traverse 36 stairs to her room. Pt reports she descends the stairs with a step to pattern due to fear of them giving out on her. Pt reports her left knee buckled about a month ago , denies falls or further injury. Pt reports pain is aggravated by traversing stairs, prolonged walking, and squatting. Pt reports the left toes started getting a tingling sensation and cold sensation 2-3 months ago. Pt denies discoloration or low back pain. Pt reports she does noticed swelling of the LLE with increased activity. Medical History: High blood pressure New diagnosis of cancer in past 12 No months? Chief Complaint Pain,Spasms,Stiff,Swelling, Gives out/Unstable Symptom Type Ache,Sharp Symptoms Relieved By Rest/Positioning,Elevation Symptoms Aggravated By Standing,Physical Activity, Walking Prior Functional Limitations None Current Functional Limitations Standing,Squatting,Walking, Stairs Symptom Description Constant but Variable Level of pain today (0-10) 5 Pain scale - at its best (0-10) 5 Pain scale - at its worst (0-10) 8 Hip/Knee Eval Gait Observation General Gait Pattern Observation Antalgic Gait,Wide Based Gait Assistive Device Assistive Devices None / NA Palpation Tenderness left Knee Palpation Finding Tenderness Knee Palpation Overall Comment medial and lateral joint line right Knee Palpation Finding Tenderness Knee Palpation Overall Comment medial and lateral joint line MMT left Hip Flexion Strength Grade 4- Good- Hip Abduction Strength Grade 4 Good Hip Adduction Strength Grade 4 Good Hip Extension Strength Grade 4 Good Knee Extension Strength Grade 4 Good Knee Flexion Strength Grade 4- Good- right Hip Flexion Strength Grade 4- Good- Hip Abduction Strength Grade 4 Good Hip Adduction Strength Grade 4 Good Hip Extension Strength Grade 4 Good Knee Extension Strength Grade 4 Good Knee Flexion Strength Grade 4 Good ROM left Knee Extension Active Range of Motion ( 2 degrees) Knee Flexion Active Range of Motion ( 102 degrees) right Knee Extension Active Range of Motion ( 2 degrees) Knee Flexion Active Range of Motion ( 105 degrees) Effusion joint effusion knee exam standard left Mid - Patellar Circumerential Measure ( 48 cm) Special Tests Knee Anterior Ney Test Negative Left,Negative Right Knee Posterior Sag ([place]er) Test Negative Left,Negative Right Knee Valgus Stress Test Negative Left,Negative Right Knee Varus Stress Test Negative Left,Negative Right Knee Tessy Test Positive Right Lower Extremity Functional Index Activities Today, do you or would you have any difficulty at all with: a.Any of your usual work, housework or Moderate difficulty school activities b. Your usual hobbies, recreational or Quite a bit of difficulty sporting activities c. Getting into or out of the bath Quite a bit of difficulty d. Walking between rooms A little bit of difficulty e. Putting on your shoes or socks No difficulty f. Squatting Moderate difficulty g. Lifting an object, like a bag of No difficulty groceries from the floor h. Performing light activities around No difficulty your home i. Performing heavy activities around No difficulty your home j. Getting into or out of a car A little bit of difficulty k. Walking 2 blocks A little bit of difficulty l. Walking a mile A little bit of difficulty m. Going up or down 10 stairs (about 1 Moderate difficulty flight of stairs) n. Standing for 1 hour A little bit of difficulty o. Sitting for 1 hour No difficulty p. Running on even ground Moderate difficulty q. Running on uneven ground Moderate difficulty r. Making sharp turns while running fast Quite a bit of difficulty s. Hopping Quite a bit of difficulty t. Rolling over in bed No difficulty LEFI Score Lower Extremity Functional Index Score 53 Outpatient Therapy Assessment Impairments Problems/Impairmments Palpation Tenderness,Impaired Range of Motion,Impaired Strength,Impaired Gait Pattern ,Impaired Walking,Impaired Standing,Impaired Stair Climbing,Impaired Stepping on Uneven Surface,Impaired Squatting,Increased Edema, Subjective C/O Pain,Impaired Self Care/Self Management Prognosis Rehab Potential Good Clinical Impression Consistent with Diagnosis Yes Short Term Goals Number of Weeks 3 Increase Strength Yes: Improve L knee flexion MMT to 4/5 to assist with function Decrease Subjective C/O Pain Yes: Improve pain at worst to 6/10 to improve overall QOL Improve Self Care/Self Management Yes Patient to be Ind w/ HEP Yes Fpc Goals Number of Weeks 6 Increase Range of Motion Yes: Improve knee flexion AROM to at least 110 B Increase Strength Yes: Improve BLE MMT to 4+/5 grossly to assist with function Improve Ability to Climb Stairs Yes: 1-2 flights reciprocally w pain 4/10 or less to assist with home navigation Improve Ability to Squat Yes Decrease Subjective C/O Pain Yes: Improve pain at worst to 4/10 to improve overall QOL Improve Self Care/Self Management Yes: Improve LEFS score to 63/ 80 to improve overall QOL Patient to be Ind w/ Advanced HEP Yes Outpatient Therapy Plan of Care Treatment Plan May Include Therapeutic Exercise Including Home Yes Exercise Program Manual Therapy Techniques Yes Neuromuscular Re-education Yes Therapeutic Activities to Return to Yes Previous Functional/Work Level Gait Training Yes ADL/Self Care Education Yes Dry Needling Yes Thermal Modalities Yes Electrical Stimulation Yes Ultrasound/Phonophoresis Yes Iontophoresis Yes Orthotics/Bracing/Splinting Yes Vasopneumatic Compression Pump Yes Massage Yes Eval/Re-Eval Yes Aquatic Therapy Yes Frequency Times per week 2 Duration Number of Weeks 4-6 Addendums This patient is a candidate for social No or vocational rehab? Patient/Guardian verbally acknowledges Yes understanding of treatment program and consents to further treatment? Patient/Guardian verbally acknowledges Yes understanding of diagnosis, prognosis and goals for treatment? Eval Complexity PT Charges 64212 - Low Complexity Shoulder/Elbow Eval Shoulder Objective Measurements Elbow Objective Measurements PHYSICIAN CERTIFICATION: I certify the specified therapy services for Yaya Gupta are required, authorized, and reviewed every 30 days.
== END 2023-07-04 14:20 | disposition home or self-care (01) ==
LOC: PT 13:00
PROVIDERS: PCP Physician Assistant; Visit Provider Orthopaedic Surgery
DX: M25.561 Pain in right knee (principal); M25.562 Pain in left knee; M17.0 Bilateral primary osteoarthritis of knee
CPT/HCPCS: 97113; 97163

== ENCOUNTER → 2023-07-30 08:40 | Outpatient (CLI) | payer OTHER, SELFPAY ==
[2023-07-30 19:00] LABS: Adenovirus,PCR Not Detected (NotDetected); Coronavirus 19, PCR Not Detected (NotDetected); Coronavirus 229E Not Detected (NotDetected); Coronavirus NL63 Not Detected (NotDetected); Coronavirus OC43 Not Detected (NotDetected); Coronovirus HKU1,PCR Not Detected (NotDetected); Human Metapneumovirus Not Detected (NotDetected); Influenza A, PCR Not Detected (NotDetected); Influenza AH1, 2009 Not Detected (NotDetected); Influenza AH1, PCR Not Detected (NotDetected); Influenza AH3,PCR Not Detected (NotDetected); Influenza B, PCR Not Detected (NotDetected); Parainfluenza 1, PCR Not Detected (NotDetected); Parainfluenza 2, PCR Not Detected (NotDetected); Parainfluenza 3, PCR Not Detected (NotDetected); Parainfluenza 4, PCR Not Detected (NotDetected); Respiratory Syncytial Virus Not Detected (NotDetected); Rhinovirus/Enterovirus Not Detected (NotDetected)
== END ==
PROVIDERS: PCP Student in an Organized Health Care Education/Training Program; Visit Provider Student in an Organized Health Care Education/Training Program
DX: R50.9 Fever, unspecified (principal); R68.89 Other general symptoms and signs; R05.9 Cough, unspecified; R09.89 Other specified symptoms and signs involving the circulatory and respiratory systems
CPT/HCPCS: 87581; 87632; 87635; 87798

== ENCOUNTER → 2023-08-12 16:00 | Outpatient (CLI) | payer OTHER, SELFPAY | PROVIDERS: PCP Student in an Organized Health Care Education/Training Program; Visit Provider Student in an Organized Health Care Education/Training Program | DX: R35.0 Frequency of micturition (principal); B96.89 Other specified bacterial agents as the cause of diseases classified elsewhere | CPT/HCPCS: 87086 ==

== ENCOUNTER → 2023-08-26 12:00 | Outpatient (CLI) | payer OTHER, SELFPAY | PROVIDERS: PCP Student in an Organized Health Care Education/Training Program; Visit Provider Student in an Organized Health Care Education/Training Program | DX: N39.0 Urinary tract infection, site not specified (principal); B95.1 Streptococcus, group B, as the cause of diseases classified elsewhere; B96.89 Other specified bacterial agents as the cause of diseases classified elsewhere | CPT/HCPCS: 87086 ==

== ENCOUNTER → 2023-08-29 06:39 | Outpatient (CLI) | payer OTHER, SELFPAY ==
--- NOTE | 2023-08-29 06:44 | CT_ITS ---
FINAL REPORT CLINICAL HISTORY: right flank pain, hematuria COMPARISON: 11/02/2022 FINDINGS: Axial CT images of the abdomen and pelvis were obtained without intravenous contrast. Coronal reformatted images were also obtained.This study was performed with techniques to keep radiation doses as low as reasonably achievable (ALARA). Individualized dose reduction techniques using automated exposure control or adjustment of mA and/or kV according to the patient''s size were employed. Abdomen:The lung bases are clear. There is no evidence of renal stone or hydronephrosis.The liver, spleen and pancreas have an unremarkable, unenhanced appearance. No mass or adenopathy is seen. No inflammatory process is identified. Pelvis: Images of the pelvis reveal no evidence of ureteral dilation or ureteral stone. The appendix is normal. There are scattered colonic diverticula. Post hysterectomy. There is a persistent supraumbilical hernia containing fat. Hernia sac measures 6.9 cm in transverse dimension, was 6.1 cm. No mass or abnormal fluid collection is identified. IMPRESSION: No renal or ureteral stone, or hydronephrosis. Interval enlargement supraumbilical hernia containing fat. Reviewed, Interpreted and Dictated by Liang Palmer III, MD Transcribed by Juli Castellon Authenticated and [facility]
== END ==
PROVIDERS: PCP Internal Medicine; Visit Provider Student in an Organized Health Care Education/Training Program
DX: R10.9 Unspecified abdominal pain (principal); R31.9 Hematuria, unspecified
CPT/HCPCS: 74176

== ENCOUNTER 2023-12-04 14:37 | Outpatient (CLI) | payer OTHER, SELFPAY ==
--- NOTE | 2023-12-04 14:42 | MM_ITS ---
PROCEDURE INFORMATION: Exam: MG Bilateral Screening 3D Mammography Exam date and time: 12/04/2023 2:52 PM Age: 53 years old Clinical indication: Screening. No family history of breast cancer. TECHNIQUE: Imaging protocol: Bilateral Screening tomosynthesis and 2D mammography including computer-aided detection (CAD) when performed. COMPARISON: 1. MG MM DIG SCREENING MAMM BI W/CAD 08/31/2020 10:30 AM 2. MG DMSB DIG MAMM-SCREEN GWENDOLYN 01/24/2015 3:53 PM FINDINGS: MAMMOGRAPHY: Breast composition: The breasts are almost entirely fatty. Mass: None. Architectural distortion: None. Calcifications: No suspicious calcifications. Asymmetric density: None. Skin thickening: None. Axillary adenopathy: None. IMPRESSION: No mammographic evidence of malignancy. Annual screening is recommended unless otherwise clinically indicated. ASSESSMENT: BI-RADS Category 1: Negative
== END 2023-12-04 23:59 ==
LOC: RAD 14:38
PROVIDERS: Visit Provider Family Medicine
DX: Z12.31 Encounter for screening mammogram for malignant neoplasm of breast (principal)
CPT/HCPCS: 77063; 77067

== ENCOUNTER 2023-12-17 19:20 | Outpatient (CLI) | payer OTHER, SELFPAY | END 2023-12-17 23:59 | LOC: LAB.DROPOF 19:20 | PROVIDERS: PCP Student in an Organized Health Care Education/Training Program; Visit Provider Student in an Organized Health Care Education/Training Program | DX: R10.2 Pelvic and perineal pain (principal) | CPT/HCPCS: 87086 ==

== ENCOUNTER 2024-01-09 08:52 | Outpatient (CLI) | payer OTHER, SELFPAY ==
--- NOTE | 2024-01-09 08:54 | XR_ITS ---
FINAL REPORT CLINICAL HISTORY: Left foot injury COMPARISON: None FINDINGS: 3 images of the left foot were obtained. There is an oblique minimally displaced fracture of the fifth proximal phalanx, which does not extend into the articular space. No other fracture is visualized. The joint spaces are intact. There is no soft tissue abnormality identified. IMPRESSION: Oblique minimally displaced fracture of the proximal phalanx of the fifth toe. Reviewed, Interpreted and Dictated by Guilherme Pete MD Transcribed by Drea Moy Authenticated and [facility]
--- NOTE | 2024-01-09 08:54 | XR_ITS ---
FINAL REPORT CLINICAL HISTORY: L foot injury COMPARISON: None FINDINGS: 3 images of the left fifth toe were obtained. There is an oblique minimally displaced fracture of the fifth proximal phalanx which does not extend to the articular surface. The joint spaces are intact. There is no soft tissue abnormality identified. IMPRESSION: Oblique minimally displaced fracture of the fifth proximal phalanx which does not extend to the articular surface. Reviewed, Interpreted and Dictated by uGilherme Pete MD Transcribed by Drea Moy Authenticated and [facility]
== END 2024-01-09 23:59 | disposition home or self-care (01) ==
LOC: RAD 08:52
PROVIDERS: PCP Student in an Organized Health Care Education/Training Program; Visit Provider Student in an Organized Health Care Education/Training Program
DX: M79.675 Pain in left toe(s) (principal); M79.672 Pain in left foot
CPT/HCPCS: 73630; 73660

== ENCOUNTER 2024-01-28 13:04 | Outpatient (CLI) | payer OTHER, SELFPAY ==
--- NOTE | 2024-01-28 13:14 | XR_ITS ---
FINAL REPORT CLINICAL HISTORY: Emph on 5th toe pain 5-6 weeks COMPARISON: None FINDINGS: LEFT FOOT: Three views of the left foot were obtained. There is a subacute oblique fracture of the fifth proximal phalanx with evidence of callus formation at the fracture site. No other fracture seen. The joint spaces are intact. Plantar calcaneal spur is noted. There is no soft tissue abnormality. IMPRESSION: Fifth proximal phalanx subacute fracture with evidence of callus formation. Reviewed, Interpreted and Dictated by Liang Palmer III, MD Transcribed by Juli Castellon Authenticated and [facility]
== END 2024-01-28 23:59 | disposition home or self-care (01) ==
LOC: RAD 13:06
PROVIDERS: PCP Student in an Organized Health Care Education/Training Program; Visit Provider Podiatrist
DX: M79.672 Pain in left foot (principal)
CPT/HCPCS: 73630

== ENCOUNTER 2024-03-17 08:18 | Day surgery (SDC) | payer OTHER, SELFPAY ==
[2024-03-16 12:35] VITALS: BMI 42.3
[2024-03-17] MEDS: LACTATED RINGERS 1000ML 1,000 ML 25 ML IV (08:33)
[2024-03-17 08:34] VITALS: BP 127/79; PULSE 82; RESP 18; TEMP 36.1; O2SAT 95
--- NOTE | 2024-03-17 09:21 | EXP.ANES.CKL ---
[facility] Disclaimer: The information contained in this section may have been updated after the patient was seen, as this information can be updated by other users. Medical History Acute bacterial bronchitis CORADO (nonalcoholic steatohepatitis) Depression Post-COVID chronic cough Edema Daytime sleepiness Edema Abnormal EKG HTN (hypertension) SOB (shortness of breath) Surgical History History of hysterectomy No significant past surgical history Family History Other No significant family history Social History Smoking Status: Never smoker second hand exposure: No alcohol intake: never substance use type: denies use current occupational status: other Travel in the last 8 weeks: None household members: family housing: house current occupation: daycare worker current occupational exposures/hazards: No caffeine: Yes [facility] Anesthesia Checklist Patient Identification Patient Identification: Arm Band and Verbal (Name & ) Structural Data Admitted From: Home Planned Operative Procedure/s: Colonoscopy Consent for Planned Operative Procedure(s) Verified: Yes Verified Documents: Surgical Consent and History and Physical NPO Status Verified Time NPO: 00:00 Additional verifications Anesthesia Reactions: No Airway Assessment Mallampati Score:: Class IV C-Spine Mobility Assessed: Yes TMJ Mobility Assessed: Yes Dentition: Good Dentition Neurological Assessment Level of Consciousness: Awake Hx Seizures: No Numbness or tingling in extremities: No Anesthesia Plan Anesthesia Risk discussed: Yes Anesthesia Plan: Verified ASA Class: III Anesthesia Type: MAC
--- NOTE | 2024-03-17 09:23 | HMH.SCOPE ---
Procedure: Date: 03/17/24 Patient Date of :: 1970 Procedure Performed:: Colonoscopy with polypectomy Indications:: Screening Performing Provider:: Moises Fitzpatrick MD Referring Provider:: . Sedation:: Monitored anesthesia care Procedure:: After informed consent was obtained the patient was taken to the endoscopy suite. Sedation ensued after the patient was transferred to the left lateral decubitus position. Pulse, blood pressure, and oxygen saturation were monitored throughout the procedure. Digital rectal exam revealed no significant abnormality. The colonoscope was placed in position. The entire colon was evaluated. The colonoscope was carefully removed and the patient was transferred to recovery in stable condition. Please see findings and specimens below for detail. Findings:: Bowel preparation moderate to poor Scattered diverticulosis (fairly severe in sigmoid colon) Fairly severe tortuosity of sigmoid colon Moderate spasticity/lack of relaxation Complex polyps (see specimens) Specimens:: Large sessile lobulated proximal right colon polyp (hot snare) Lobulated polyp at 40 cm (hot snare) Recommendations:: Timing of repeat colonoscopy is pending pathology but likely be between 1-2 years with extended bowel preparation secondary to limited bowel preparation, size/nature of polyp (particularly proximal right colon polyp), sigmoid tortuosity and spasticity/lack of relaxation. Complications:: No immediate Estimated blood obtained (mL): 1 Colonoscopy Component Colonoscopy Component Was a colonoscopy performed during today's procedure?: Yes Recommended follow up colonoscopy of at least 10 years?: No If no, follow up colonoscopy recommended in ___ years?: (See above) Reason for not recommending >/= 10 yr follow-up interval?: (See above)
[2024-03-17 09:29] VITALS: O2SAT 95
[2024-03-17 10:14] VITALS: BP 116/76; PULSE 98; RESP 16; TEMP 36.8; O2SAT 100
[2024-03-17 10:24] VITALS: BP 125/82; PULSE 74; RESP 16; O2SAT 99
[2024-03-17 10:34] VITALS: BP 122/74; PULSE 70; RESP 16; O2SAT 100
[2024-03-17 10:44] VITALS: BP 118/68; PULSE 71; RESP 16; O2SAT 100
== END 2024-03-17 10:45 | disposition home or self-care (01) ==
LOC: OUTP 08:20
PROVIDERS: PCP Family Medicine; Visit Provider Surgery
PROC: 0DJD8ZZ Inspection of Lower Intestinal Tract, Via Natural or Artificial Opening Endoscopic (ICD-10-PCS; CPT 45385; principal; 2024-03-17 09:30)
DX: Z12.11 Encounter for screening for malignant neoplasm of colon (principal); K57.30 Diverticulosis of large intestine without perforation or abscess without bleeding; D12.2 Benign neoplasm of ascending colon; K63.5 Polyp of colon
CPT/HCPCS: 45385; J2704; J3010; J7120

== ENCOUNTER 2024-03-19 07:16 | Emergency (ER) | payer OTHER, SELFPAY ==
[2024-03-19] VITALS (10 sets, daily range): BP systolic 130–151; BP diastolic 77–109; PULSE 78–105; RESP 13–14; TEMP 36.7–36.9; O2SAT 95–98; BMI 41.5
--- NOTE | 2024-03-19 07:40 | PC.NURSE ---
dr mohan at bedside
--- NOTE | 2024-03-19 07:47 | CT_ITS ---
FINAL REPORT TECHNIQUE: Thin section axial CT images were performed from the lung apices to the upper abdomen after the administration of IV contrast. 3-D and MIP reconstructions performed. This study was performed with techniques to keep radiation doses as low as reasonably achievable (ALARA). Individualized dose reduction techniques using automated exposure control or adjustment of mA and/or kV according to the patient's size were employed. CLINICAL HISTORY: cough, shortness of breath, s/p colonoscopy COMPARISON: None FINDINGS: Pulmonary vessels enhance in normal fashion without evidence of embolism. Thoracic aorta shows no dissection or aneurysm. There are multifocal airspace opacities, greatest in the left lower lobe. However, there is also involvement of the central right lower lobe and minimally the upper lobes. Findings are compatible with pneumonia. There is no evidence of lung abscess or pleural effusion. There is no significant pericardial effusion. Mild hilar adenopathy is probably reactive. IMPRESSION: No evidence of pulmonary embolism. Multifocal pneumonia, greatest in the left lower lobe. Reviewed, Interpreted and Dictated by Ernesto Plasencia MD Transcribed by Juli Castellon Authenticated and [facility]
--- NOTE | 2024-03-19 07:47 | CT_ITS ---
FINAL REPORT TECHNIQUE: After the administration of intravenous contrast, axial images were obtained through the abdomen and pelvis by computed tomography. The study was performed with techniques to keep radiation dose as low as reasonably achievable, (ALARA). Individual dose reduction techniques using automated exposure control or adjustment of mA and/or kV according to the patient's size were employed. CLINICAL HISTORY: abd pain/back pain and fever s/p colonoscopy COMPARISON: 08/29/2023 FINDINGS: Abdomen: There is new patchy airspace disease in the left lower lobe compatible with pneumonia. No effusions are seen. Solid abdominal organs are unremarkable. The gallbladder is negative. No bowel obstruction is present. However, there is new stranding surrounding the proximal descending colon most suspicious for diverticulitis. A dominant diverticula is noted along the posterior wall of the colon. There is a central abdominal wall hernia with defect measuring 30 mm. The hernia contains fat with hernia sac measuring 73 mm, similar to the prior study. There is no adenopathy. Pelvis: The appendix is normal. Mild sigmoid diverticulosis is noted. Status post hysterectomy. There is no free fluid. No pelvic mass is seen. IMPRESSION: Left lower lobe pneumonia. Findings compatible with diverticulitis of the descending colon without evidence of abscess or obstruction. Reviewed, Interpreted and Dictated by Ernesto Plasencia MD Transcribed by Juli Castellon Authenticated and [facility]
--- NOTE | 2024-03-19 07:49 | ED_ITS ---
Discharge Plan Disposition Patient Disposition: Home, Self-Care Condition: Good Prescriptions Prescriptions: New amoxicillin-pot clavulanate 875-125 mg tablet 1 tab PO BID Qty: 20 0RF azithromycin 500 mg tablet See Rx Instructions .ROUTE .COMPLEX Qty: 3 0RF Rx Instructions: For 500 mg dose pack: take 500 mg once daily for 3 days ondansetron 4 mg tablet,disintegrating 4 mg PO Q8H PRN (Reason: nausea and vomiting) 4 Days Qty: 12 0RF ketorolac 10 mg tablet 10 mg PO Q8H PRN (Reason: pain) 4 Days Qty: 12 0RF oxycodone 5 mg tablet 5 mg PO Q8H PRN (Reason: pain) Qty: 12 0RF No Action lisinopril 40 mg tablet 40 mg PO DAILY Qty: 90 3RF hydrochlorothiazide 12.5 mg tablet 12.5 mg PO DAILY Qty: 90 4RF metoprolol succinate [Toprol XL] 100 mg tablet extended release 24 hr 100 mg PO DAILY Qty: 30 5RF metformin 500 mg tablet 500 mg PO DAILY Qty: 30 2RF diclofenac sodium [Voltaren Arthritis Pain] 1 % gel 4 g topical QID Qty: 100 2RF Rx Instructions: apply to single knee, ankle, foot; for foot includes sole/toes/top of foot meloxicam 7.5 mg tablet 7.5 mg PO DAILY PRN (Reason: pain) 30 Days Qty: 30 1RF albuterol sulfate 90 mcg/actuation HFA aerosol inhaler 2 puff INHALATION QID PRN (Reason: shortness of breath or wheezing) Qty: 8.5 10RF fluticasone propionate 50 mcg/actuation spray,suspension 1 spray intranasal DAILY Qty: 16 2RF Rx Instructions: administer into each nostril Referrals Follow up/Referrals: Lupe Tong APRN [Primary Care Provider] - See instructions Activity Restrictions/Add. Instructions Additional Instructions/Restrictions: You were evaluated in the emergency department today and diagnosed with diverticulitis and pneumonia. Please follow-up very closely with your primary care provider as well as your general surgeon who performed your colonoscopy. food and nutrition supervisor your prescription for antibiotics at the pharmacy and take the full course as prescribed. I have also prescribed you pain medication and nausea medication to have as needed. Do not drive or operate heavy machinery while taking narcotic pain medication. In addition to these, you may take Tylenol every 4-6 hours as needed for pain. Eat a bland diet until your symptoms have resolved. I recommend starting out with clear liquids and then advancing as tolerated. Return to the emergency department for new or worsening symptoms. Clinical Impressions Clinical Impression: Diverticulitis, Pneumonia Stand Alone Forms Stand Alone Forms: Work/School Release Instructions Patient Instructions: DI for Pneumonia -- Adult, DI for Diverticulitis, DI for Acute Abdominal Pain Discharge ED Provider: Ruby Alvarez General Adult HPI General Chief complaint: Abdominal Pain Stated complaint: fever, lower abd pain, cough, lower back pain Time Seen by Provider: 03/19/24 07:19 Mode of Arrival: Ambulatory Source of Information: Patient Limitations: No Limitations Description of Symptoms (Recalled from ER Triage Doc. by RN): pt presents to ED wioth c/o abd pain and cough. pt reports symptoms began saturday after colonoscopy. pt denies n/v/d. History of Present Illness HPI narrative: This patient is a 53-year-old female with a history of obesity, hypertension, and CLEO presenting to the emergency department for evaluation with concern for abdominal pain, cough, and fever since having a colonoscopy 2 days ago. She states that initially she was just having some lower abdominal pain and back pain as well as the cough, but the symptoms progressively worsened. She is not have much of an appetite, and she had a fever greater than 101 Fahrenheit today. No nausea, vomiting, changes in bowel movements, or other concerns. She does note urinary frequency but no dysuria or hematuria. Related Data Previous Rx's Medication Instructions Recorded albuterol sulfate 90 mcg/actuation 2 puff inhalation QID PRN 11/06/21 aerosol inhaler shortness of breath or wheezing #8.5 grams fluticasone propionate 50 1 spray intranasal DAILY #16 grams 05/14/23 mcg/actuation nasal spray,suspension hydrochlorothiazide 12.5 mg tablet 12.5 mg PO DAILY #90 tabs 11/14/23 lisinopril 40 mg tablet 40 mg PO DAILY #90 tabs 11/14/23 metoprolol succinate 100 mg 100 mg PO DAILY #30 tabs 11/14/23 tablet,extended release 24 hr (Toprol XL) metformin 500 mg tablet 500 mg PO DAILY #30 tabs 11/18/23 diclofenac sodium 1 % topical gel 4 g topical QID #100 grams 01/09/24 (Voltaren Arthritis Pain) meloxicam 7.5 mg tablet 7.5 mg PO DAILY PRN pain 30 days 01/30/24 #30 tabs amoxicillin 875 mg-potassium 1 tab PO BID #20 tabs 03/19/24 clavulanate 125 mg tablet azithromycin 500 mg tablet See Rx Instructions PO .COMPLEX #3 03/19/24 tabs ketorolac 10 mg tablet 10 mg PO Q8H PRN pain 4 days #12 03/19/24 tabs ondansetron 4 mg disintegrating 4 mg PO Q8H PRN nausea and 03/19/24 tablet vomiting 4 days #12 tabs oxycodone 5 mg tablet 5 mg PO Q8H PRN pain #12 tabs 03/19/24 Allergies Allergy/AdvReac Type Severity Reaction Status Date / Time No Known Allergies Allergy Verified 03/17/24 08:31 [facility] Disclaimer: The information contained in this section may have been updated after the patient was seen, as this information can be updated by other users. Medical History Acute bacterial bronchitis CORADO (nonalcoholic steatohepatitis) Depression Post-COVID chronic cough Edema Daytime sleepiness Edema Abnormal EKG HTN (hypertension) SOB (shortness of breath) Surgical History History of hysterectomy No significant past surgical history Family History Other No significant family history Social History Smoking Status: Never smoker second hand exposure: No alcohol intake: never substance use type: denies use current occupational status: other Travel in the last 8 weeks: None household members: family housing: house current occupation: daycare worker current occupational exposures/hazards: No caffeine: Yes ROS Obtained: Yes All systems reviewed & no additional complaints except as documented Physical Exam General General appearance: alert, in no apparent distress and obese Head Head exam: atraumatic and normocephalic Eye Eye exam: Present normal appearance, PERRL and EOMI ENT ENT exam: Present normal exam, normal oropharynx, mucous membranes moist and normal external ear exam Neck Neck exam: Present normal inspection, full ROM and trachea midline; Absent tenderness Chest Chest inspection: Present normal inspection and symmetric chest wall rise; Absent tenderness Respiratory Respiratory exam: Present normal lung sounds bilaterally; Absent respiratory distress, wheezes, stridor or accessory muscle use Cardiovascular Cardiovascular exam: Present regular rate and normal rhythm Abdominal Exam Abdominal exam: Present soft; Absent distention, tenderness or guarding Extremities Exam Extremities exam: Present normal inspection, full ROM and normal capillary refill; Absent tenderness or edema Back Exam Back exam: Present normal inspection and full ROM; Absent tenderness Neurological Exam Neurological exam: Present alert, oriented X3, CN II-XII intact and normal gait; Absent motor sensory deficit Psychiatric Psychiatric exam: Present normal affect and normal mood Skin Skin exam: Present warm and dry Medical Decision Making Medical Records Medical records reviewed: Yes I reviewed the patient's medical records. Ricco Inquiry Pt receiving controlled substance: Yes Ricco was queried for this patient: Yes Risks and benefits of using a controlled substance: were discussed with pt by me Vital Signs: 03/19/24 07:18 03/19/24 07:24 03/19/24 07:30 Temperature 98.4 F Temperature Source Oral Pulse Rate 94 H 96 H Pulse Rate [Left Radial] 105 H Respiratory Rate 14 Blood Pressure 143/109 H 149/105 H Blood Pressure [Right Arm] 143/105 H Blood Pressure Mean [Right Arm] 117 02 Sat by Pulse Oximetry 95 98 95 Oxygen Delivery Method Room Air Room Air Room Air 03/19/24 08:01 03/19/24 08:31 03/19/24 08:53 Temperature Temperature Source Pulse Rate 89 84 81 Pulse Rate [Left Radial] Respiratory Rate Blood Pressure 143/95 H 135/83 138/80 Blood Pressure [Right Arm] Blood Pressure Mean [Right Arm] 02 Sat by Pulse Oximetry 97 96 95 Oxygen Delivery Method Room Air Room Air Room Air 03/19/24 09:49 03/19/24 09:50 03/19/24 10:00 Temperature Temperature Source Pulse Rate 87 84 78 Pulse Rate [Left Radial] Respiratory Rate Blood Pressure 151/83 H 135/82 138/77 Blood Pressure [Right Arm] Blood Pressure Mean [Right Arm] 02 Sat by Pulse Oximetry 98 97 97 Oxygen Delivery Method Room Air Room Air Lab Data Lab results reviewed: Yes I reviewed the patient's lab results. Lab Results 03/19/24 07:20: Urine Color Yellow, Urine Appearance Clear, Urine pH 7.0, Ur Specific [place] 1.020, Urine Protein Negative, Urine Glucose (UA) Negative, Urine Ketones Negative, Urine Blood Trace-i, Urine Nitrate Negative, Urine Bilirubin 1+ A, Urine Urobilinogen 1.0, Ur Leukocyte Esterase Trace, Urine RBC Occasional, Urine WBC 3-5, Ur Squamous Epith Cells 3-5, Urine Bacteria Trace, Urine Mucus 1+ 03/19/24 07:27: WBC 10.6, RBC 4.46, Hgb 14.0, Hct 41.3, MCV 92.7, MCH 31.3 H, MCHC 33.8, RDW 13.6, Plt Count 204, MPV 8.1, Neut % (Auto) 77.2, Lymph % (Auto) 13.9, [place] % (Auto) 5.9, Eos % (Auto) 2.1, Baso % (Auto) 0.9, Neut # (Auto) 8.2 H, Lymph # (Auto) 1.5, [place] # (Auto) 0.6, Eos # (Auto) 0.2, Baso # (Auto) 0.1, Sodium 139, Potassium 3.7, Chloride 106, Carbon Dioxide 28, Anion Gap 8.7, BUN 11, Creatinine 0.80, Estimated Creat Clear 79, Estimated GFR 75, Est GFR ( Amer) 91, Glucose 106 H, Calcium 8.9, Total Bilirubin 1.1, AST 25, ALT 24, Alkaline Phosphatase 47, Total Protein 7.4, Albumin 3.8, Globulin 3.6 H, Albumin/Globulin Ratio 1.1, Lipase 90 03/19/24 08:09: SARS-CoV-2 (PCR) Not detected, Influenza A Untype (PCR) Not detected, Influenza Type B (PCR) Not detected 03/19/24 07:27 03/19/24 07:27 Orders (Tests/Meds): ED MEDICATIONS Generic Name Dose Route Start Last Admin Trade Name Freq PRN Reason Stop Dose Admin Sodium Chloride 10 ml 03/19/24 07:32 Sodium Chloride 0.9% 10ml Flush Syringe IV 04/18/24 07:31 NEEDED PRN Maintain IV Site Sodium Chloride 10 ml 03/19/24 08:17 03/19/24 08:19 Sodium Chloride 0.9% 10ml Syr (Rad Only) IV 04/18/24 08:16 10 ml NEEDED PRN Administration Maintain IV Site Discontinued Medications Generic Name Dose Route Start Last Admin Trade Name Lamberto PRN Reason Stop Dose Admin Acetaminophen 1,000 mg 03/19/24 07:48 03/19/24 07:57 Acetaminophen 1,000mg/100ml Vial IV 03/19/24 07:49 1,000 mg ONCE ONE Administration Amoxicillin/Clavulanate Potassium 1 each 03/19/24 10:21 03/19/24 10:33 Amoxicillin/Clavulanate Potassium 875/125mg Tablet PO 03/19/24 10:22 1 each ONCE ONE Administration Azithromycin 500 mg 03/19/24 10:21 03/19/24 10:33 Azithromycin 250mg Tablet PO 03/19/24 10:22 500 mg ONCE ONE Administration Lactated Ringer's 1,000 mls @ 999 mls/hr 03/19/24 07:48 03/19/24 07:57 Lactated Ringer's 1000 Ml Bag IV 03/19/24 08:48 999 mls/hr .Q1H1M ONE Administration Iopamidol 100 ml 03/19/24 08:17 03/19/24 08:19 Iopamidol-370 (76%);100ml Bottle IV 03/19/24 08:18 100 ml ONCE ONE Administration Ketorolac Tromethamine 15 mg 03/19/24 07:48 03/19/24 07:56 Ketorolac 30mg/Ml Vial IV 03/19/24 07:49 15 mg ONCE ONE Administration Metoclopramide HCl 5 mg 03/19/24 10:21 03/19/24 10:34 Metoclopramide Hcl 10mg/2ml Vial IVP 03/19/24 10:22 5 mg ONCE ONE Administration Ondansetron HCl 4 mg 03/19/24 07:48 03/19/24 07:56 Ondansetron 4mg/2ml Vial IV 03/19/24 07:49 4 mg ONCE ONE Administration Oxycodone HCl 5 mg 03/19/24 10:21 03/19/24 10:33 Oxycodone 5mg Immediate Release Tablet PO 03/19/24 10:22 5 mg ONCE ONE Administration Sodium Chloride 50 ml 03/19/24 08:17 03/19/24 08:19 0.9 % Sodium Chloride 50 Ml Vial IV 03/19/24 08:18 50 ml ONCE ONE Administration ORDERS Category Date Time Status CT abdomen pelvis w con Stat Cat Scan 03/19/24 07:[address] angio chest PE protocol Stat Cat Scan 03/19/24 07:47 Completed Complete Blood Count Auto Diff Stat Lab 03/19/24 07:27 Completed Comprehensive Metabolic Panel Stat Lab 03/19/24 07:27 Completed Hemoglobin A1C Routine Lab 03/19/24 07:27 Received Lipase Stat Lab 03/19/24 07:27 Completed Rapid PCR Covid and Flu A/B Stat Lab 03/19/24 08:09 Completed UA [Urinalysis and Microscopic] Stat Lab 03/19/24 07:20 Completed Medical Decision Narrative: In summary, this patient is a 53-year-old female presenting to the Emergency Department for evaluation of fever, cough, lower abdominal pain, and back pain after recent colonoscopy. Differential diagnoses considered include but are not limited to pneumonia, viral syndrome, bowel perforation, cystitis, pyelonephritis, constipation, colitis. Ruling out the most morbid conditions drove assessment. It should be noted patient's history includes obesity and hypertension which are not at goal therapy. This complicates all aspects of care by increasing patient's risk for morbidity. I reviewed patient's past medical records and noted colonoscopy 03/17 at which point patient had 2 polyps removed. On exam, the patient is resting comfortably in bed in no acute distress. She is mildly hypertensive. Abdominal exam is benign, and cardiopulmonary exam is reassuring. Exam is limited secondary to body habitus. Workup included CBC, CMP, lipase, viral swab, urinalysis, CT chest, abdomen, and pelvis with contrast. She was given a bolus of IV fluids as well as IV Toradol, acetaminophen, and Zofran for symptomatic improvement. I independently interpreted CT scans prior to the radiologist read and noted pneumonia as well as diverticulitis. Please see their read for final interpretation. Labs were obtained that demonstrated slight neutrophilic predominance but no other acutely concerning abnormalities.. On reassessment, patient had good improvement after administration of interventions above. She still has some pain, so she was given oral oxycodone. She is able to tolerate oral intake. Given improvement, I feel that she is appropriate for outpatient management with antibiotics to treat pneumonia as well as supportive management of diverticulitis. She was given oral Augmentin and azithromycin here as well as prescriptions for these. She was also given prescriptions for Zofran, Toradol, and oxycodone to have as needed. She was given instructions for close outpatient follow-up, strict return precautions, and she was discharged after all questions were answered. Critical Care Critical Care Time Critical Care Time: No
[2024-03-19 07:53] LABS: Microscopic, Urine URINE MICROSCOPIC (MICROSCOPIC)
[2024-03-19] MEDS: ONDANSETRON 4MG/2ML VIAL 4 MG IV (07:56)
[2024-03-19] MEDS: KETOROLAC 30MG/ML VIAL 15 MG IV (07:56)
[2024-03-19] MEDS: LACTATED RINGERS 1000ML 1,000 ML 999 ML IV (07:57)
[2024-03-19] MEDS: ACETAMINOPHEN 1,000MG/100ML VIAL 1000 MG IV (07:57)
[2024-03-19 07:58] LABS: Appearance,Urine CLEAR (Clear); Blood, Urine TRACE-I (Negative); Color,Urine YELLOW (Yellow); Glucose,Urine (UA) Negative (Negative); Ketones,Urine Negative (Negative); Leukocyte Esterase,Urine TRACE (Negative); Nitrate,Urine Negative (Negative); Protein,Urine Negative (Negative)
[2024-03-19 07:59] LABS: Basophils # 0.1 K/mm3 (0-0.2); Basophils % 0.9 % (0.1-2.0); Chloride 106 mmol/L (98-107); Eosinophils # 0.2 K/mm3 (0.0-0.4); Eosinophils % 2.1 % (0.1-12.0); Hematocrit 41.3 % (37.0-47.0); Lymphocytes # 1.5 K/mm3 (0.7-4.5); Lymphocytes % 13.9 % (10-50); Mean Corpuscular HGB Conc 33.8 g/dL (31.8-35.4); Mean Corpuscular Hemoglobin 31.3 pg (27.0-31.2); Mean Corpuscular Volume 92.7 fl (81-99); Mean Platelet Volume 8.1 fl (7.4-10.4); Monocytes # 0.6 K/mm3 (0.1-1.0); Monocytes % 5.9 % (1.7-9.3); Neutrophils # 8.2 K/mm3 (1.8-7.8); Neutrophils % 77.2 % (37.0-80.0); Platelet Count 204 K/mm3 (142-424); Potassium 3.7 mmoL/L (3.5-5.1); Red Blood Count 4.46 M/mm3 (4.20-5.40); Red Cell Distribution Width 13.6 % (11.5-17.5); Sodium 139 mmol/L (136-145); White Blood Count 10.6 K/mm3 (4.8-10.8)
[2024-03-19 08:02] LABS: Alanine Aminotransferase 24 U/L (12-78); Albumin Level 3.8 g/dl (3.5-5.0); Albumin/Globulin Ratio 1.1 (1.1-1.8); Alkaline Phosphatase 47 U/L (38-126); Anion Gap 8.7 mEq/L (5-15); Aspartate Amino Transferase 25 U/L (14-36); Bilirubin,Total 1.1 mg/dl (0.2-1.3); Blood Urea Nitrogen 11 mg/dl (7-17); Calcium 8.9 mg/dl (8.4-10.2); Carbon Dioxide 28 mmol/L (22.0-30.0); Creatinine Clearance Estimated 79 mL/min (50-200); Estimated Glomerular Filt Rate 75 ml/min (>60); GFR (African American) 91 ML/MIN (>60); Globulin 3.6 g/dL (1.3-3.2); Glucose 106 mg/dl (74-100); Total Protein,Serum 7.4 g/dl (6.3-8.2)
--- NOTE | 2024-03-19 08:06 | PC.NURSE ---
PT MEDICATED PER EMAR, WARM BLANKET PROVIDED. CALL LIGHT WITHIN REACH
[2024-03-19 08:10] LABS: Bilirubin,Urine 1+ (Negative)
--- NOTE | 2024-03-19 08:11 | PC.NURSE ---
PT TO CT
[2024-03-19 08:13] LABS: Lipase 90 U/L (23-300)
[2024-03-19 08:13] LABS: Coronavirus 19, PCR Not Detected (NotDetected); Influenza A, PCR Not Detected (NotDetected); Influenza B, PCR Not Detected (NotDetected)
[2024-03-19 08:14] LABS: Mucus,Urine 1+ /lpf; RBC,Urine Occasional #/hpf (0-3)
[2024-03-19 08:15] LABS: Bacteria,Urine Trace /lpf
[2024-03-19] MEDS: SODIUM CHLORIDE 0.9% 10ML SYR (RAD ONLY) 10 ML IV (08:19)
[2024-03-19] MEDS: IOPAMIDOL-370 (76%);100ML BOTTLE 100 ML IV (08:19)
[2024-03-19] MEDS: 0.9 % SODIUM CHLORIDE 50 ML VIAL IV (08:19)
[2024-03-19] MEDS: AMOXICILLIN/CLAVULANATE POTASSIUM 875/125MG TABLET 1 EACH PO (10:33)
[2024-03-19] MEDS: OXYCODONE 5MG IMMEDIATE RELEASE TABLET 5 MG PO (10:33)
[2024-03-19] MEDS: AZITHROMYCIN 250MG TABLET 500 MG PO (10:33)
[2024-03-19] MEDS: METOCLOPRAMIDE HCL 10MG/2ML VIAL 5 MG IVP (10:34)
[2024-03-19 12:30] LABS: Hemoglobin A1C 5.2 % (4.0-6.0)
== END 2024-03-19 11:46 | disposition home or self-care (01) ==
PROVIDERS: Emergency Provider Emergency Medicine; PCP Family Medicine
DX: J18.9 Pneumonia, unspecified organism; K57.32 Diverticulitis of large intestine without perforation or abscess without bleeding; R10.30 Lower abdominal pain, unspecified; R50.9 Fever, unspecified; I10 Essential (primary) hypertension
CPT/HCPCS: 71275; 74177; 80053; 81001; 83036; 83690; 85025; 87636; 96361; 96374; 96375; 99285; J0131; J1885; J2405; J2765; J7120; Q9967

== ENCOUNTER 2024-09-03 08:56 | Outpatient (CLI) | payer SELFPAY ==
--- NOTE | 2024-09-03 09:01 | XR_ITS ---
FINAL REPORT CLINICAL HISTORY: right knee pain COMPARISON: 06/04/2023 FINDINGS: Right knee Three views were obtained. There is no fracture or dislocation. There are mild and moderate degenerative changes. There is significant medial compartment narrowing. There is 9 mm of lateral subluxation of the tibia in relation to the distal femur. No soft tissue abnormality is identified. IMPRESSION: Degenerative changes as above. Lateral subluxation of the tibia in relation to the distal femur. Reviewed, Interpreted and Dictated by Liang Palmer III, MD Transcribed by Marielos Santana Authenticated and [facility]
--- NOTE | 2024-09-03 09:01 | XR_ITS ---
FINAL REPORT CLINICAL HISTORY: left knee pain COMPARISON: 06/04/2023 FINDINGS: Left knee Three views were obtained. There is no fracture or dislocation. There are mild and moderate degenerative changes. Lateral compartment narrowing is identified. There is 9 mm of lateral subluxation of the tibia in relation to the distal femur. No soft tissue abnormality is identified. IMPRESSION: Degenerative changes as above. Lateral subluxation of the tibia in relation to the distal femur. Reviewed, Interpreted and Dictated by Liang Palmer III, MD Transcribed by Marielos Santana Authenticated and [facility]
--- NOTE | 2024-09-03 10:18 | ECG_ITS ---
APPROVED REPORT Exam: Resting ECG HR:82 bpm ECG Measurements Heart Rate 82 AXES AL 154 P 66 QRSd 92 QRS 20 QT 388 T 62 QTc 427 Conclusion SINUS RHYTHM Late R wave progression BORDERLINE ECG UNCONFIRMED REPORT Electronically signed by : Chaitanya Barclay MD 09/03/2024 16:40:30
== END 2024-09-03 23:59 | disposition home or self-care (01) ==
LOC: RAD 08:57
PROVIDERS: PCP Student in an Organized Health Care Education/Training Program; Visit Provider Physician Assistant Surgical
DX: M25.562 Pain in left knee (principal); M25.561 Pain in right knee; I49.8 Other specified cardiac arrhythmias
CPT/HCPCS: 73562; 93005

== ENCOUNTER 2024-09-03 10:14 | Emergency (ER) | payer SELFPAY ==
[2024-09-03 10:14] VITALS: BP 228/116; PULSE 93; RESP 20; TEMP 36.9; O2SAT 98; BMI 40.7
--- NOTE | 2024-09-03 10:26 | ED_ITS ---
Discharge Plan Disposition Patient Disposition: Home, Self-Care Condition: Good Prescriptions Prescriptions: New oxycodone 5 mg tablet 5 mg PO Q8H PRN (Reason: pain) 3 Days Qty: 10 0RF No Action albuterol sulfate 90 mcg/actuation HFA aerosol inhaler 2 puff INHALATION QID PRN (Reason: shortness of breath or wheezing) Qty: 8.5 10RF diclofenac sodium [Voltaren Arthritis Pain] 1 % gel 4 g topical QID Qty: 100 2RF Rx Instructions: apply to single knee, ankle, foot; for foot includes sole/toes/top of foot hydrochlorothiazide 12.5 mg tablet 12.5 mg PO DAILY Qty: 90 4RF lisinopril 40 mg tablet 40 mg PO DAILY Qty: 90 3RF metformin 500 mg tablet 500 mg PO DAILY Qty: 30 2RF metoprolol succinate [Toprol XL] 100 mg tablet extended release 24 hr 100 mg PO DAILY Qty: 30 5RF azelastine 137 mcg (0.1 %) spray,non-aerosol 137 mcg intranasal BID Qty: 8.22 2RF Rx Instructions: administer into each nostril All Day Allergy (cetirizine) 10 mg capsule 10 mg PO DAILY Qty: 30 0RF Referrals Follow up/Referrals: Provider,Referral, MD [Referring] - See instructions Activity Restrictions/Add. Instructions Additional Instructions/Restrictions: As we discussed, it appears that your blood pressure being elevated is likely due to multiple factors, including pain and that you missed your blood pressure medication dose this morning. I prescribed a course of pain medications. I recommend you pick and shovel man a blood pressure cuff and check your blood pressure at home. Please resume your home blood pressure medications including your nighttime dose. Please take the pain medications as needed and follow-up with orthopedic doctor. Please return with any new or worsening symptoms. Clinical Impressions Clinical Impression: Asymptomatic hypertension Stand Alone Forms Stand Alone Forms: Work/School Release Instructions Patient Instructions: DI for High Blood Pressure Print Language Print Language: Amharic Discharge ED Provider: Britton Yap Adult HPI General Chief complaint: Extremity Problem,Nontraumatic Stated complaint: high bp sent from orth Time Seen by Provider: 09/03/24 10:25 History of Present Illness HPI narrative: Patient presents for evaluation of hypertension, noted in Ortho clinic earlier today. Patient does have known history of hypertension. As above additionally been experiencing pain secondary to lower extremity injury. She missed her morning dose of antihypertensives. Patient denies any chest pain headache nausea vomiting blurry vision double vision urine changes or any other acute complaints outside of right lower extremity pain Please note that above description of symptoms, in this electronic medical record under categorization of recalled from ER triage doctor by RN are reflective of an initial nursing assessment, however, is not reflective of my full history and physical exam that was personally taken and clarified. Consequentially, this preceding description of symptoms, which may include the patient's categorized chief complaint in the EMR, do not reflect my personal clinical impression, and the ultimate description of history of present illness and patient stated complaints should be deferred to this section of the note. Unless stated otherwise or congruent with this section of the note, additional signs, symptoms, or incongruence should be interpreted as inaccurate with my clinical impression. Related Data Previous Rx's ?Medication ?Instructions ?Recorded albuterol sulfate 90 mcg/actuation 2 puff inhalation QID PRN 03/23/24 aerosol inhaler shortness of breath or wheezing #8.5 grams diclofenac sodium 1 % topical gel 4 g topical QID #100 grams 04/16/24 (Voltaren Arthritis Pain) hydrochlorothiazide 12.5 mg tablet 12.5 mg PO DAILY #90 tabs 04/16/24 lisinopril 40 mg tablet 40 mg PO DAILY #90 tabs 04/16/24 metformin 500 mg tablet 500 mg PO DAILY #30 tabs 04/16/24 metoprolol succinate 100 mg 100 mg PO DAILY #30 tabs 04/16/24 tablet,extended release 24 hr (Toprol XL) azelastine 137 mcg (0.1 %) nasal 137 mcg (0.137 mL) intranasal BID 07/01/24 spray #8.22 mL cetirizine 10 mg capsule (All Day 10 mg PO DAILY #30 caps 07/01/24 Allergy (cetirizine)) oxycodone 5 mg tablet 5 mg PO Q8H PRN pain 3 days #10 09/03/24 tabs Allergies Allergy/AdvReac Type Severity Reaction Status Date / Time No Known Allergies Allergy Verified 07/01/24 14:36 [facility] Disclaimer: The information contained in this section may have been updated after the patient was seen, as this information can be updated by other users. Medical History Acute bacterial bronchitis CORADO (nonalcoholic steatohepatitis) Depression Post-COVID chronic cough Edema Daytime sleepiness Edema Abnormal EKG HTN (hypertension) SOB (shortness of breath) Surgical History History of colonoscopy History of hysterectomy No significant past surgical history Family History Other No significant family history Social History Smoking Status: Never smoker second hand exposure: No alcohol intake: never substance use type: denies use current occupational status: other Travel in the last 8 weeks: None household members: family housing: house current occupation: daycare worker current occupational exposures/hazards: No caffeine: Yes Other Medical History Have you received the Flu Vaccine for this season: No Have you received the Pneumonia Vaccine: No ROS Obtained: Yes other As per HPI Physical Exam General General appearance: alert and in no apparent distress Head Head exam: atraumatic and normocephalic Eye Eye exam: Present normal appearance Neck Neck exam: Present normal inspection Chest Chest inspection: Present normal inspection and symmetric chest wall rise Respiratory Respiratory exam: Present normal lung sounds bilaterally; Absent respiratory distress Cardiovascular Cardiovascular exam: Present regular rate and normal rhythm Abdominal Exam Abdominal exam: Present soft Neurological Exam Neurological exam: Present alert and oriented X3 Psychiatric Psychiatric exam: Present normal affect and normal mood Skin Skin exam: Present warm and dry Medical Decision Making Medical Records Medical records reviewed: Yes I reviewed the patient's medical records. Screening: Per USPSTF and CDC recommendations, given the prevalence of disease in our region, it is our hospital?s policy to screen for HIV and viral Hepatitis for all patients aged 18 and over and those with ongoing risk factors. Ricco Inquiry Pt receiving controlled substance: No Vital Signs: 09/03/24 10:14 09/03/24 11:00 09/03/24 11:29 Temperature 98.4 F Temperature Source Oral Pulse Rate 84 89 Pulse Rate [Right] 93 H Respiratory Rate 20 Blood Pressure 196/107 H 213/120 H Blood Pressure [Right Arm] 228/116 H Blood Pressure Mean [Right Arm] 153 Blood Pressure Source 02 Sat by Pulse Oximetry 98 100 100 Oxygen Delivery Method Room Air Room Air Room Air 09/03/24 11:37 09/03/24 11:56 09/03/24 12:15 Temperature 98.2 F Temperature Source Oral Pulse Rate 89 85 84 Pulse Rate [Right] Respiratory Rate 20 Blood Pressure 188/108 H 188/108 H 198/100 H Blood Pressure [Right Arm] Blood Pressure Mean [Right Arm] Blood Pressure Source Automatic Cuff Manual Cuff/ Doppler 02 Sat by Pulse Oximetry 100 100 Oxygen Delivery Method Room Air Room Air Room Air Lab Data Lab Results 09/03/24 11:15: WBC 8.9, RBC 4.24, Hgb 13.2, Hct 39.7, MCV 93.6, MCH 31.1, MCHC 33.2, RDW 13.4, Plt Count 212, MPV 8.5, Neut % (Auto) 72.5, Lymph % (Auto) 19.7, [place] % (Auto) 5.8, Eos % (Auto) 1.4, Baso % (Auto) 0.7, Neut # (Auto) 6.4, Lymph # (Auto) 1.7, [place] # (Auto) 0.5, Eos # (Auto) 0.1, Baso # (Auto) 0.1, Sodium 138, Potassium 4.0, Chloride 108 H, Carbon Dioxide 28, Anion Gap 6.0, BUN 15, Creatinine 0.70, Estimated Creat Clear 173, Estimated GFR 88, Est GFR ( Amer) 106, Glucose 100, Calcium 9.1, Total Bilirubin 0.6, AST 35, ALT 24, Alkaline Phosphatase 46, Total Protein 7.3, Albumin 4.2, Globulin 3.1, Albumin/Globulin Ratio 1.4, HIV Ag/Ab Combo Qual Negative 09/03/24 11:15 09/03/24 11:15 Orders (Tests/Meds): ED MEDICATIONS Discontinued Medications Generic Name Dose Route Start Last Admin Trade Name Freq PRN Reason Stop Dose Admin Hydralazine HCl 5 mg 09/03/24 10:31 09/03/24 11:21 Hydralazine 20mg/Ml Vial IV 09/03/24 10:32 5 mg ONCE ONE Administration Hydrochlorothiazide 12.5 mg 09/03/24 12:24 09/03/24 12:36 Hydrochlorothiazide 12.5mg Capsule PO 09/03/24 12:25 Not Given ONCE STA Hydrochlorothiazide 12.5 mg 09/03/24 12:45 09/03/24 12:41 Hydrochlorothiazide 25mg Tablet PO 09/03/24 12:46 12.5 mg ONCE ONE Administration Morphine Sulfate 4 mg 09/03/24 10:59 09/03/24 11:21 Morphine 4mg/Ml Syringe IV 09/03/24 11:00 4 mg ONCE ONE Administration ORDERS Category Date Time Status CBC w/Auto Diff [Complete Blood Count Auto Diff] Stat Lab 09/03/24 11:15 Completed CMP [Comprehensive Metabolic Panel] Stat Lab 09/03/24 11:15 Completed HIV Combo Stat Lab 09/03/24 11:15 Completed Medical Decision Narrative: Patient with history and exam per above presenting for evaluation of hypertension, lower extremity pain Diagnoses considered include asymptomatic hypertension, hypertension occurring in the setting of pain, patient exhibits no signs or symptoms of endorgan damage at this time. ED workup and treatment included: ED MEDICATIONS Discontinued Medications Generic Name Dose Route Start Last Admin Trade Name Freq PRN Reason Stop Dose Admin Hydralazine HCl 5 mg 09/03/24 10:31 09/03/24 11:21 Hydralazine 20mg/Ml Vial IV 09/03/24 10:32 5 mg ONCE ONE Administration Hydrochlorothiazide 12.5 mg 09/03/24 12:24 09/03/24 12:36 Hydrochlorothiazide 12.5mg Capsule PO 09/03/24 12:25 Not Given ONCE STA Hydrochlorothiazide 12.5 mg 09/03/24 12:45 09/03/24 12:41 Hydrochlorothiazide 25mg Tablet PO 09/03/24 12:46 12.5 mg ONCE ONE Administration Morphine Sulfate 4 mg 09/03/24 10:59 09/03/24 11:21 Morphine 4mg/Ml Syringe IV 09/03/24 11:00 4 mg ONCE ONE Administration ORDERS Category Date Time Status CBC w/Auto Diff [Complete Blood Count Auto Diff] Stat Lab 09/03/24 11:15 Completed CMP [Comprehensive Metabolic Panel] Stat Lab 09/03/24 11:15 Completed HIV Combo Stat Lab 09/03/24 11:15 Completed Labs were independently interpreted by me, significant for no acute findings My clinical impression at this time is most consistent with asymptomatic hypertension. I discussed my clinical impression with patient and answered all questions. At this time, the evidence for any other entities in the differential is insufficient to warrant any further testing or ED observation. This was explained to the patient. The patient was advised that persistent or worsening symptoms require further evaluation. Critical Care Critical Care Time Critical Care Time: No
[2024-09-03 11:00] VITALS: BP 196/107; PULSE 84; O2SAT 100
[2024-09-03] MEDS: MORPHINE 4MG/ML SYRINGE 4 MG IV (11:21)
[2024-09-03] MEDS: HYDRALAZINE 20MG/ML VIAL 5 MG IV (11:21)
[2024-09-03 11:29] VITALS: BP 213/120; PULSE 89; O2SAT 100
[2024-09-03 11:34] LABS: Albumin Level 4.2 g/dl (3.5-5.0); Chloride 108 mmol/L (98-107); Sodium 138 mmol/L (136-145)
[2024-09-03 11:36] LABS: Basophils # 0.1 K/mm3 (0-0.2); Basophils % 0.7 % (0.1-2.0); Eosinophils # 0.1 K/mm3 (0.0-0.4); Eosinophils % 1.4 % (0.1-12.0); Hematocrit 39.7 % (37.0-47.0); Hemoglobin 13.2 g/dL (12.2-16.2); Lymphocytes # 1.7 K/mm3 (0.7-4.5); Lymphocytes % 19.7 % (10-50); Mean Corpuscular HGB Conc 33.2 g/dL (31.8-35.4); Mean Corpuscular Hemoglobin 31.1 pg (27.0-31.2); Mean Corpuscular Volume 93.6 fl (81-99); Mean Platelet Volume 8.5 fl (7.4-10.4); Monocytes # 0.5 K/mm3 (0.1-1.0); Monocytes % 5.8 % (1.7-9.3); Neutrophils # 6.4 K/mm3 (1.8-7.8); Neutrophils % 72.5 % (37.0-80.0); Platelet Count 212 K/mm3 (142-424); Red Blood Count 4.24 M/mm3 (4.20-5.40); Red Cell Distribution Width 13.4 % (11.5-17.5); White Blood Count 8.9 K/mm3 (4.8-10.8)
[2024-09-03 11:37] VITALS: BP 188/108; PULSE 89; O2SAT 100
[2024-09-03 11:37] LABS: Alanine Aminotransferase 24 U/L (12-78); Albumin/Globulin Ratio 1.4 (1.1-1.8); Alkaline Phosphatase 46 U/L (38-126); Aspartate Amino Transferase 35 U/L (14-36); Bilirubin,Total 0.6 mg/dl (0.2-1.3); Blood Urea Nitrogen 15 mg/dl (7-17); Calcium 9.1 mg/dl (8.4-10.2); Carbon Dioxide 28 mmol/L (22.0-30.0); Creatinine Clearance Estimated 173 mL/min (50-200); Estimated Glomerular Filt Rate 88 ml/min (>60); GFR (African American) 106 ML/MIN (>60); Globulin 3.1 g/dL (1.3-3.2); Glucose 100 mg/dl (74-100); Total Protein,Serum 7.3 g/dl (6.3-8.2)
--- NOTE | 2024-09-03 11:45 | PC.NURSE ---
rounded on pt no needs at this time call light in reach
[2024-09-03 11:56] VITALS: BP 188/108; PULSE 85; O2SAT 100
[2024-09-03 12:15] VITALS: BP 198/100; PULSE 84; RESP 20; TEMP 36.8; O2SAT 98
[2024-09-03] MEDS: hydroCHLOROthiazide 25MG TABLET 12.5 MG PO (12:41)
--- NOTE | 2024-09-03 12:58 | PC.NURSE ---
pt dressed in gown,clipped and transferred to chemistry lab instructor
[2024-09-04 16:40] LABS: HIV Combo NEGATIVE (Negative)
== END 2024-09-03 12:47 | disposition home or self-care (01) ==
PROVIDERS: Emergency Provider Emergency Medicine; PCP Student in an Organized Health Care Education/Training Program
DX: M79.661 Pain in right lower leg (principal); I10 Essential (primary) hypertension
CPT/HCPCS: 80053; 85025; 87389; 96374; 96375; 99283; J0360; J2270

== ENCOUNTER 2024-09-11 13:56 | Outpatient (CLI) | payer SELFPAY ==
--- NOTE | 2024-09-11 14:01 | CA_ITS ---
FINAL REPORT TECHNIQUE: Compression hagan scale and Doppler evaluation CLINICAL HISTORY: PAIN IN LATERAL CALF AND THIGH,NKI COMPARISON: None FINDINGS: Femoral and popliteal veins show normal compressibility and flow. Visualized portion of the calf veins are patent by Doppler exam. IMPRESSION: No evidence of right lower extremity deep venous thrombosis Reviewed, Interpreted and Dictated by Ernesto Plasencia MD Transcribed by Drea Moy Authenticated and [facility]
== END 2024-09-11 23:59 | disposition home or self-care (01) ==
PROVIDERS: PCP Family Medicine; Visit Provider Family Medicine
DX: M79.604 Pain in right leg (principal); R60.0 Localized edema
CPT/HCPCS: 93971

== ENCOUNTER 2024-11-02 09:29 | Outpatient (CLI) | payer BC, SELFPAY ==
--- NOTE | 2024-11-02 09:31 | CA_ITS ---
FINAL REPORT TECHNIQUE: Spectral and color Doppler exam CLINICAL HISTORY: HTN FINDINGS: DOPPLER RENAL VESSELS HISTORY: Hypertension . FINDINGS: Intrarenal resistive indices on the right are 0.4-0.56, normal . Intrarenal resistive indices on the left are 0.0 0.47-0.56, normal . Renal size is normal and symmetric. Right main renal artery systolic velocity: 188 cm/sec. Aortic-right renal artery flow velocity ratio: 2.50 COMMENT: Moderate right renal artery stenosis.. Left main renal artery systolic velocity: 131 cm/sec. Aortic-left renal artery flow velocity ratio: 1.75 COMMENT: No evidence of hemodynamically significant renal artery stenosis . IMPRESSION: Moderate right renal artery stenosis. CTA or gadolinium-enhanced MR may be considered as a more sensitive exam. Alternatively noncontrast MRI may be considered for assessing main renal arteries for stenosis as a more sensitive exam if the patient has renal insufficiency. Reviewed, Interpreted and Dictated by Ernesto Plasencia MD Transcribed by María Spear Authenticated and [facility]
--- NOTE | 2024-11-02 09:31 | CA_ITS ---
APPROVED REPORT EXAM: Comprehensive 2D, Doppler, and color-flow Echocardiogram [employer]: Pili Santana RT(R) Ht: 5 ft 7 in Wt: 269lbs BSA: 2.29 BP: 136/98 mmHg Indications: HTN, edema, MOHAMUD 2D Dimensions LA Volume 24.60 mL LA Volume Index 10.70 mL/m2 (M/F) 16-34 EF AP4 58.80 % GL Strain -20.5 % M-Mode Dimensions RVDd 2.68 cm (0.9-2.6) LA Diam 4.26 cm (1.9-4.0) LVDd 5.18 cm (3.5-5.7) LVDs 3.84 cm (3.5-5.7) IVSd 0.80 cm (0.6-1.1) PWd 0.71 cm (0.6-1.1) EF (Teich) 50.50% FS 25.90% EDV (Teich) 128.40 mL ESV (Teich) 63.50 mL LV Diastology E Decel Time 207 (160-240 msec) E/A Ratio 0.91 Mitral Valve MV A Velocity 79.0 (40-130 cm/s) E/A Ratio 0.91 Left Ventricle The left ventricle is normal size. The left ventricular systolic function is normal. The left ventricular ejection fraction is within the normal range. There is increased LV wall thickness. There is normal LV segmental wall motion. Transmitral Doppler flow pattern suggests impaired LV relaxation. LVEF is 55%. Right Ventricle The right ventricle is normal size. The right ventricular systolic function is normal. Atria Left atrium is mildly dilated. Right atrium is mildly dilated. There is no Doppler evidence of interatrial shunt. Aortic Valve The aortic valve opens well. There is no aortic valvular stenosis. No aortic regurgitation is present. Mitral Valve The mitral valve is normal in structure. No evidence of mitral valve stenosis. Trace mitral valve regurgitation noted. Tricuspid Valve Tricuspid valve is grossly normal in structure and function. Trace tricuspid regurgitation. There is insufficient TR jet to estimate RVSP. Pulmonic Valve The pulmonary valve is normal in structure. Trace pulmonic regurgitation. Great Vessels The aortic root is normal in size. The ascending aorta is normal in size. IVC is normal in size and collapses >50% with inspiration. Pericardium There is no pericardial effusion. Other Information Study Quality: Fair Conclusion Normal biventricular systolic function. Mild biatrial dilation. No significant valvular stenosis or regurgitation. Electronically signed by : Cherie Britt MD 11/08/2024 01:00:25
--- NOTE | 2024-11-02 10:13 | US_ITS ---
FINAL REPORT CLINICAL HISTORY: .HYPERTENSION COMPARISON: None FINDINGS: RENAL ULTRASOUND Ultrasound images of the kidneys were obtained. The right kidney is normal in size and measures 10.6 cm in length. It is normal echogenicity. There is no hydronephrosis. The left kidney is normal in size and measures 11.4 cm in length. It is normal echogenicity. There is no hydronephrosis. IMPRESSION: Normal renal ultrasound. Reviewed, Interpreted and Dictated by Ernesto Plasencia MD Transcribed by Juli Castellon Authenticated and [facility]
== END 2024-11-02 23:59 | disposition home or self-care (01) ==
LOC: RT 09:29
PROVIDERS: PCP Family Medicine; Visit Provider Family Medicine
DX: I70.1 Atherosclerosis of renal artery (principal); I10 Essential (primary) hypertension; R60.0 Localized edema; R06.09 Other forms of dyspnea
CPT/HCPCS: 76770; 93306; 93976

== ENCOUNTER 2025-01-13 06:34 | Outpatient (CLI) | payer BC, SELFPAY ==
--- NOTE | 2025-01-13 07:00 | CT_ITS ---
FINAL REPORT TECHNIQUE: Thin section axial images were obtained through the abdomen after contrast injection per CT angiogram protocol. Multiplanar reconstruction images were obtained from the axial data. This exam was performed with techniques to keep radiation dose as low as reasonably achievable. This includes automated exposure control, adjustment of the MA and KVP, and iterative reconstruction technique. CLINICAL HISTORY: renal stenosis COMPARISON: None FINDINGS: CTA: No abdominal aortic aneurysm or aortic dissection. The celiac axis, superior mesenteric artery, and inferior mesenteric artery are patent without stenosis. There is a separate origin of the right hepatic artery from the aorta, without evidence of stenosis. Solitary renal arteries are present bilaterally, which are patent without stenosis The common iliac arteries and visualized portions of the internal and external iliac arteries are patent. No significant stenosis. NONVASCULAR: The gallbladder is present. The solid abdominal organs are without acute abnormality. No small bowel obstruction is identified. In the left upper quadrant, there is a colonic diverticulum with surrounding abnormal attenuation, consistent with mild early acute diverticulitis. No perforation or abscess is identified. There is a midline ventral abdominal wall hernia containing fat and the anterior wall of the transverse colon. No lymphadenopathy or free fluid. No acute osseous abnormality. IMPRESSION: No evidence of abdominal aortic aneurysm or dissection. No significant stenosis. There is a colonic diverticulum in the left upper quadrant with surrounding abnormal attenuation, consistent with mild early acute diverticulitis. Midline ventral abdominal wall hernia containing fat and the anterior wall of the transverse colon. Reviewed, Interpreted and Dictated by Ariella Maloney MD Transcribed by Drea Moy Authenticated and [facility]
[2025-01-13 07:23] LABS: Blood Urea Nitrogen 20 mg/dl (7-17); Estimated Glomerular Filt Rate 65 ml/min (>60); GFR (African American) 79 ML/MIN (>60)
[2025-01-13] MEDS: 0.9 % SODIUM CHLORIDE 50 ML VIAL IV (08:10)
[2025-01-13] MEDS: IOPAMIDOL-370 (76%);100ML BOTTLE 100 ML IV (08:10)
[2025-01-13] MEDS: SODIUM CHLORIDE 0.9% 10ML SYR (RAD ONLY) 10 ML IV (08:10)
== END 2025-01-13 23:59 | disposition home or self-care (01) ==
LOC: RAD 06:35
PROVIDERS: PCP Family Medicine; Visit Provider Nurse Practitioner Family
DX: R10.84 Generalized abdominal pain (principal); I70.1 Atherosclerosis of renal artery
CPT/HCPCS: 36415; 74175; 82565; 84520; Q9967

== ENCOUNTER 2025-03-17 09:00 | Outpatient (CLI) | payer BC, SELFPAY ==
[2025-03-17 19:08] LABS: Chol/HDL Ratio 3.8 (1-3.5); Cholesterol 152 mg/dl (140-200); HDL Cholesterol 40 mg/dl (40-60); Triglycerides 77 mg/dl (30-150); VLDL Cholesterol 15 mg/dL (0-40)
[2025-03-17 19:19] LABS: Direct LDL Cholesterol 85.29 mg/dL (100-129)
[2025-03-17 19:27] LABS: 25-OH Vitamin D, Total 26.1 ng/mL (30-100)
[2025-03-17 19:38] LABS: Thyroid Stimulating Hormone 1.74 uIU/mL (0.465-4.68)
== END 2025-03-17 23:59 | disposition home or self-care (01) ==
LOC: LAB.DROPOF 03-18 12:33
PROVIDERS: PCP Family Medicine; Visit Provider Family Medicine
DX: E55.9 Vitamin D deficiency, unspecified (principal); I10 Essential (primary) hypertension; R73.09 Other abnormal glucose; R53.83 Other fatigue
CPT/HCPCS: 80061; 82306; 83036; 84443

== ENCOUNTER → 2025-04-21 08:17 | Outpatient (CLI) | payer BC, SELFPAY | LOC: SL 04-28 08:18 | PROVIDERS: PCP Family Medicine; Visit Provider Family Medicine | DX: G47.33 Obstructive sleep apnea (adult) (pediatric) (principal); R53.83 Other fatigue; G47.36 Sleep related hypoventilation in conditions classified elsewhere; M25.562 Pain in left knee; M25.561 Pain in right knee | CPT/HCPCS: G0399 ==

== ENCOUNTER 2025-05-17 11:05 | Outpatient (CLI) | payer BC, SELFPAY | END 2025-05-18 23:59 | disposition home or self-care (01) | LOC: LAB.DROPOF 06-23 11:39 | PROVIDERS: PCP Family Medicine; Visit Provider Family Medicine | DX: R39.9 Unspecified symptoms and signs involving the genitourinary system (principal) | CPT/HCPCS: 87086 ==

== ENCOUNTER 2025-06-30 08:54 | Outpatient (CLI) | payer BC, SELFPAY ==
[2025-06-30 15:51] LABS: Hematocrit 40.8 % (37.0-47.0); Hemoglobin 12.9 g/dL (12.2-16.2); Immature Granulocytes % 0.4 %; Mean Corpuscular HGB Conc 31.6 g/dL (31.8-35.4); Mean Corpuscular Hemoglobin 29.9 pg (27.0-31.2); Mean Corpuscular Volume 94.7 fl (81-99); Nucleated Red Blood Cells % 0 %; Platelet Count 234 K/mm3 (142-424); Red Blood Count 4.31 M/mm3 (4.20-5.40); Red Cell Distribution Width-SD 48.8 fL; White Blood Count 8.5 K/mm3 (4.8-10.8)
[2025-06-30 16:35] LABS: Alanine Aminotransferase 19 U/L (12-78); Albumin Level 3.7 g/dl (3.5-5.0); Albumin/Globulin Ratio 1.2 (1.1-1.8); Alkaline Phosphatase 70 U/L (38-126); Anion Gap 13.9 mEq/L (5-15); Aspartate Amino Transferase 19 U/L (14-36); Bilirubin,Total 0.8 mg/dl (0.2-1.3); Blood Urea Nitrogen 16 mg/dl (7-17); Calcium 8.8 mg/dl (8.4-10.2); Carbon Dioxide 29 mmol/L (22.0-30.0); Chloride 103 mmol/L (98-107); Creatinine,Serum 0.80 mg/dl (0.52-1.04); Estimated Glomerular Filt Rate 75 ml/min (>60); GFR (African American) 90 ML/MIN (>60); Globulin 3.0 g/dL (1.3-3.2); Glucose 68 mg/dl (74-100); Potassium 3.9 mmoL/L (3.5-5.1); Sodium 142 mmol/L (136-145); Total Protein,Serum 6.7 g/dl (6.3-8.2)
[2025-06-30 17:11] LABS: Hemoglobin A1C 5.3 % (4.0-6.0)
== END 2025-06-30 23:59 | disposition home or self-care (01) ==
LOC: LAB.DROPOF 07-02 01:41
PROVIDERS: PCP Family Medicine; Visit Provider Family Medicine
DX: I10 Essential (primary) hypertension (principal); R73.03 Prediabetes; R35.0 Frequency of micturition
CPT/HCPCS: 80053; 83036; 85025; 87086

== ENCOUNTER 2025-07-05 17:09 | Outpatient (CLI) | payer OTHER, SELFPAY ==
[2025-07-05 16:43] LABS: Microscopic, Urine URINE MICROSCOPIC (MICROSCOPIC)
[2025-07-05 19:45] LABS: Bilirubin,Urine Negative (Negative); Color,Urine YELLOW (Yellow); Glucose,Urine (UA) Negative (Negative); Ketones,Urine Negative (Negative); Leukocyte Esterase,Urine Negative (Negative); PH,Urine 7.5 (5.0-8.5); Protein,Urine Negative (Negative); Specific Gravity, Urine 1.020 (1.005-1.030); Urobilinogen,Urine 2.0 EU/dl (0.2)
[2025-07-05 21:10] LABS: Bacteria,Urine Trace /lpf; WBC,Urine Occasional #/hpf (0-3)
[2025-07-05 21:11] LABS: Amorphous Sediment,Urine 2+ /lpf
== END 2025-07-05 23:59 | disposition home or self-care (01) ==
LOC: LAB.DROPOF 07-06 17:09
PROVIDERS: PCP Urology; Visit Provider Urology
DX: R31.9 Hematuria, unspecified (principal); R10.9 Unspecified abdominal pain
CPT/HCPCS: 81001

== ENCOUNTER 2025-07-16 09:16 | Outpatient (CLI) | payer OTHER, SELFPAY ==
--- NOTE | 2025-07-16 09:30 | CT_ITS ---
FINAL REPORT TECHNIQUE: Axial CT of the abdomen and pelvis, without and with IV contrast. This study was performed with techniques to keep radiation doses as low as reasonably achievable, (ALARA). Individualized dose reduction techniques using automated exposure control or adjustment of mA and/or kV according to the patient's size were employed. CLINICAL HISTORY: abdominal pain COMPARISON: 03/20/2023, CTA of the abdomen 01/13/2025 FINDINGS: CT ABDOMEN PELVIS WITH AND WITHOUT CONTRAST Abdomen: Lung bases are clear. Fatty infiltration of the liver is present. The gallbladder is normal in appearance. The spleen, pancreas and adrenal glands are unremarkable. Precontrast imaging shows no renal stone disease. Postcontrast imaging of the kidneys shows no mass or obstruction. There is a central midline abdominal wall hernia with the defect measuring up to 35 mm, was previously 28 mm. This hernia contains transverse colon, and the hernia sac measures up to 92 mm in size, was previously 83 mm. The amount of anterior transverse colon in the hernia sac has increased since the prior exam. No bowel obstruction or fluid collection is seen. Pelvis: The appendix is normal in appearance. The patient is status post hysterectomy. There is diverticulosis without evidence of diverticulitis. Pelvic bowel loops are otherwise unremarkable. No fluid collection or adenopathy is seen. IMPRESSION: 1. No acute inflammatory changes identified. 2. Increasing size of the anterior abdominal wall hernia when compared with prior exam of 01/13/2025. 3. Diverticulosis without diverticulitis. Reviewed, Interpreted and Dictated by Ernesto Plasencia MD Transcribed by Drea Moy Authenticated and [facility]
[2025-07-16] MEDS: SODIUM CHLORIDE 0.9% 10ML SYR (RAD ONLY) 10 ML IV (09:33)
[2025-07-16] MEDS: IOPAMIDOL-370 (76%);100ML BOTTLE 75 ML IV (09:33)
== END 2025-07-16 23:59 | disposition home or self-care (01) ==
LOC: RAD 09:17
PROVIDERS: PCP Family Medicine; Visit Provider Urology
DX: K43.9 Ventral hernia without obstruction or gangrene (principal); K57.90 Diverticulosis of intestine, part unspecified, without perforation or abscess without bleeding; R31.9 Hematuria, unspecified
CPT/HCPCS: 74178; Q9967

== ENCOUNTER 2025-08-18 10:02 | Outpatient (CLI) | payer OTHER, SELFPAY ==
[2025-08-18 09:18] VITALS: BMI 41.5
[2025-08-18 10:43] LABS: Hematocrit 38.8 % (37.0-47.0); Hemoglobin 12.8 g/dL (12.2-16.2); Immature Granulocytes % 0.2 %; Mean Corpuscular HGB Conc 33.0 g/dL (31.8-35.4); Mean Corpuscular Hemoglobin 30.7 pg (27.0-31.2); Mean Corpuscular Volume 93.0 fl (81-99); Nucleated Red Blood Cells % 0 %; Platelet Count 197 K/mm3 (142-424); Red Blood Count 4.17 M/mm3 (4.20-5.40); Red Cell Distribution Width-SD 45.5 fL; White Blood Count 6.6 K/mm3 (4.8-10.8)
[2025-08-18 10:59] LABS: Anion Gap 7.8 mEq/L (5-15); Blood Urea Nitrogen 21 mg/dl (7-17); Calcium 9.1 mg/dl (8.4-10.2); Carbon Dioxide 27 mmol/L (22.0-30.0); Chloride 105 mmol/L (98-107); Creatinine Clearance Estimated 89 mL/min (50-200); Creatinine,Serum 0.70 mg/dl (0.52-1.04); Estimated Glomerular Filt Rate 87 ml/min (>60); GFR (African American) 106 ML/MIN (>60); Glucose 90 mg/dl (74-100); Potassium 3.8 mmoL/L (3.5-5.1); Sodium 136 mmol/L (136-145)
== END 2025-08-18 23:59 | disposition home or self-care (01) ==
LOC: PREOP 10:03
PROVIDERS: PCP Family Medicine; Visit Provider Surgery
DX: Z01.812 Encounter for preprocedural laboratory examination (principal)
CPT/HCPCS: 80048; 85025

== ENCOUNTER 2025-08-30 08:35 | Day surgery (SDC) | payer OTHER, SELFPAY ==
[2025-08-18 13:49] VITALS: BMI 41.5
[2025-08-30] VITALS (12 sets, daily range): BP systolic 129–175; BP diastolic 73–110; PULSE 57–67; RESP 14–18; TEMP 36.2–38; O2SAT 90–96
[2025-08-30] MEDS: LACTATED RINGERS 1000ML 1,000 ML 25 ML IV (09:19)
--- NOTE | 2025-08-30 09:28 | P.PNANES_ITS ---
[facility] Disclaimer: The information contained in this section may have been updated after the patient was seen, as this information can be updated by other users. 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, w/o chronic kidney disease Fracture of fifth toe, left, closed Viral illness Pneumonia Acute bacterial bronchitis CORADO (nonalcoholic steatohepatitis) Depression Post-COVID chronic cough Edema Edema Abnormal EKG HTN (hypertension) SOB (shortness of breath) Surgical History History of dilatation and curettage History of colonoscopy History of hysterectomy Family History Other Asthma Diabetes Hyperlipidemia Hypertension Kidney disease Social History Smoking Status: Never smoker second hand exposure: No alcohol intake: never substance use type: denies use current occupational status: employed Travel in the last 8 weeks?: None household members: significant other housing: house marital status: legally number of children: 3 current occupation: daycare worker current occupational exposures/hazards: No caffeine: Yes Have you lived/traveled outside [place] in past 30 days?: No Contact w/someone who lives/traveled outside [place] past 30 days?: No Exposure to someone with infectious disease in past 14 days?: No Do you have a fever (greater than 100.4 F or 38 C)?: No Have you tested positive for COVID-19?: No Exposed to someone with COVID-19 in past 14 days?: No Do you have a sore throat?: No Do you have a cough?: No Do you have any weakness?: No Do you have any diarrhea?: No Are you experiencing any unusual bleeding?: No Do you have any muscle aches/pain?: No Do you have any abdominal pain?: No Are you experiencing loss of taste or smell?: No [facility] Anesthesia Checklist Patient Identification Patient Identification: Arm Band and Verbal (Name & ) Structural Data Admitted From: Home Planned Operative Procedure/s: Hernia Surgery Verified Documents: Surgical Consent NPO Status Verified Time NPO: 00:00 Chart Verification Results Verified: CBC and BMP Additional verifications Anesthesia Reactions: No Hx Blood Transfusions: No Blood Transfusion Reaction: No Airway Assessment Mallampati Score:: Class II C-Spine Mobility Assessed: Yes TMJ Mobility Assessed: Yes (Limited) Dentition: Good Dentition Neurological Assessment Level of Consciousness: Awake and Appropriate Hx Seizures: No Numbness or tingling in extremities: No Anesthesia Plan Anesthesia Risk discussed: Yes Anesthesia Plan: Verified ASA Class: II Anesthesia Type: General
[2025-08-30] MEDS: LIDOCAINE 1% 20ML MDV 20 ML (11:36)
[2025-08-30] MEDS: CEFAZOLIN SODIUM 3 GM in 0.9 % SODIUM CHLORIDE 100 ML IV (11:36)
--- NOTE | 2025-08-30 14:01 | P.OP_ITS ---
Date of procedure: 08/30/25 Pre-op Diagnosis:: Ventral hernia Post-op Diagnosis:: Chronically incarcerated ventral hernia Procedure performed:: Laparoscopic ventral hernia repair with placement of 15.2 cm circular Bard compositx mesh Surgeon:: Liang Monge MD [employer] W[employer]ER:: Logan Tee Anesthesia: GETA Estimated blood loss (mL): 20 Operative findings:: She had a defect in the mid abdomen superior to the umbilicus measuring about 3- 1/2 to 4 cm. There was a large amount of chronically incarcerated omentum and a loop of transverse colon. Operative note:: Consent was obtained patient was taken to the operating room. She was given preoperative intravenous antibiotics. In the operating room she was placed in a supine position. General anesthesia was induced. Pang catheter was placed. Abdomen was prepped and draped in the standard surgical fashion. Through a left subcostal incision optical trocar was inserted. Intraperitoneal contents were visualized. She was noted to have hernia in the mid abdomen above her umbilicus. Ultimately 2 additional trocars were placed in the left abdomen under laparoscopic visualization and a 5 mm trocar was inserted in the right lower abdomen for a total of four 5 mm trocars and a 12 mm trocar was inserted in the right subcostal area. Prolonged dissection was carried out as it appeared as though she had a loop of transverse colon with omentum chronically incarcerated through the hernia defect. With traction and blunt dissection this was carried out for couple of hours and attempt to reduce this chronically incarcerated hernia contents. Ultimately this was reduced and there was minimal peritoneal attachment to the edge of the hernia sac. This was incised with Metzenbaum dissection with limited use of ultrasonic harmonic mike. There was some minor oozing from the abdominal muscle adjacent to the edge of the hernia sac and this was cauterized with electrocautery with good hemostasis. Prolonged evaluation and inspection was carried out of the transverse colon and this appeared to be without obvious injury. There was some herniation of the falciform ligament and falciform ligament was divided with ultrasonic robotic mike and then excised from the anterior abdominal wall superiorly to allow for placement of the mesh. A spinal needle was inserted through the abdominal wall and attempt to identify the fascial edges. Overall size of the fascial defect measured about 4 cm. A 15.2 cm circular Bard composite X mesh was brought onto the field. It was rolled and inserted through the 12 mm right subcostal trocar site. Tiny incision was made centrally over the hernia defect at the abdominal wall. Suture passer was inserted through this and the tubing for the balloon positioning system of the mesh was brought through the anterior abdominal wall. Balloon positioning system was inflated and mesh was oriented intracorporeally to cover the fascial edges with generous overlap. Mesh was secured in 4 quadrants with the OPTi fix tacking device. The balloon positioning system balloon was then removed via the 12 mm trocar site. Mesh was secured around its periphery with the OPTi fix device. Several OPTi fix tacks were placed more centrally to help eliminate space of bump with the mesh. Repair appeared adequate with good overlap and hemostasis. Attention was then turned to the transverse colon once again. Once again it appeared to be without obvious injury. The fascia at the 12 mm trocar site was closed with a couple of 0 Ethibond sutures using the Carlos-Lupillo laparoscopic fascial closure device. Trocars were removed as CO2 pneumoperitoneum was evacuated. Skin incisions were closed with 4-0 Monocryl in a subcuticular fashion. Steri-Strips and dressings were applied. . Condition: stable Disposition: PACU Complications:: None immediately apparent
--- NOTE | 2025-08-30 14:08 | P.PNANES_ITS ---
[facility] Anesthesia Record Part I Anesthesia Record I Intake, IV Amount: 900 Hydration: Adequate Estimated blood loss (mL): 20 Urine output (mL): 50 Blood Products used (#): none Blood Pressure: 129/73 SaO2: 92 Pulse Rate: 60 Airway Patency: Patent Respiratory Rate: 14 Temperature: 97.2 F Patient is:: Drowsy and Stable Stable to PACU at:: 14:00
[2025-08-30] MEDS: MEPERIDINE 25MG/ML 1ML SYRINGE 12.5 MG IV (14:15)
[2025-08-30] MEDS: KETOROLAC 30MG/ML VIAL 30 MG IV (14:25)
[2025-08-30 15:01] LABS: Microscopic,Cath URINE MICROSCOPIC (MICROSCOPIC)
[2025-08-30 15:19] LABS: Appearance,Urine/Cath CLEAR (Clear); Bilirubin,Cath Negative (Negative); Blood, Urine/Cath Negative (Negative); Color,Urine/Cath YELLOW (Yellow); Glucose,Urine/Cath (UA) Negative (Negative); Ketones,Urine/Cath Negative (Negative); Leukocyte Esterase,Cath Negative (Negative); Nitrate,Cath Negative (Negative); PH,Urine/Cath 6.0 (5.0-8.5); Protein,Urine/Cath Negative (Negative); Specific Gravity, Urine/Cath 1.015 (1.005-1.030); Urobilinogen,Cath 0.2 EU/dl (0.2)
[2025-08-30] MEDS: ONDANSETRON 4MG ODT 4 MG SL (16:15)
--- NOTE | 2025-08-30 16:34 | SUR.PHASEII ---
Patient had c/o nausea, V.O. provided per Dr. Monge and CORKY Javier at bedside to give a one time dose of SL 4mg zofran and that prescription for zofran would be sent to pharmacy.
--- NOTE | 2025-08-31 07:52 | P.PNANES_ITS ---
[facility] Anesthesia Record Part II Anesthesia Record Part II Discharge Time: 14:30 Destination: [facility] Day Care (OP Surgery) PACU nurse assessment reviewed?: Yes Patient Condition:: Good Anesthesia Complications:: None Swallowing reflex intact?: Yes Airway Patency: Patent Cyanosis?: No Blood Pressure: 163/89 SaO2: 93 Respiratory Rate: 18 Pulse Rate: 61 Temperature: 97.8 F Mental Status: Alert & Oriented Pain level:: 4 Nausea and/or vomitting:: None Intake, IV Amount: 0 Hydration: Adequate
[2025-08-31 07:53] VITALS: BP 163/89; PULSE 61; RESP 18; TEMP 36.6; O2SAT 93
== END 2025-08-30 14:49 | disposition home or self-care (01) ==
PROVIDERS: PCP Family Medicine; Visit Provider Surgery
PROC: 0WQF4ZZ Repair Abdominal Wall, Percutaneous Endoscopic Approach (ICD-10-PCS; CPT 49594; principal; 2025-08-30 10:30)
DX: K43.9 Ventral hernia without obstruction or gangrene (principal); E11.9 Type 2 diabetes mellitus without complications; I11.9 Hypertensive heart disease without heart failure; K75.81 Nonalcoholic steatohepatitis (NASH); Z90.710 Acquired absence of both cervix and uterus; Z83.3 Family history of diabetes mellitus; Z82.49 Family history of ischemic heart disease and other diseases of the circulatory system; G47.33 Obstructive sleep apnea (adult) (pediatric); Z79.899 Other long term (current) drug therapy; Z79.84 Long term (current) use of oral hypoglycemic drugs
CPT/HCPCS: 49594; 51702; 81001; C1781; J1100; J1885; J2003; J2175; J2250; J2405; J2704; J2795; J3010; J7120; Q0162

== ENCOUNTER 2025-09-21 09:14 | Outpatient (CLI) | payer OTHER, SELFPAY ==
[2025-09-21 09:28] LABS: Hematocrit 40.5 % (37.0-47.0); Hemoglobin 12.9 g/dL (12.2-16.2); Mean Corpuscular HGB Conc 31.9 g/dL (31.8-35.4); Mean Corpuscular Hemoglobin 29.8 pg (27.0-31.2); Mean Corpuscular Volume 93.5 fl (81-99); Platelet Count 253 K/mm3 (142-424); Red Blood Count 4.33 M/mm3 (4.20-5.40); White Blood Count 7.4 K/mm3 (4.8-10.8)
[2025-09-21 09:45] LABS: Chloride 104 mmol/L (98-107)
[2025-09-21 09:46] LABS: Potassium 4.1 mmoL/L (3.5-5.1); Sodium 143 mmol/L (136-145)
[2025-09-21 09:49] LABS: Anion Gap 11.1 mEq/L (5-15); Blood Urea Nitrogen 19 mg/dl (7-17); Calcium 9.7 mg/dl (8.4-10.2); Carbon Dioxide 32 mmol/L (22.0-30.0); Creatinine,Serum 0.80 mg/dl (0.52-1.04); Estimated Glomerular Filt Rate 75 ml/min (>60); GFR (African American) 90 ML/MIN (>60); Glucose 109 mg/dl (74-100)
[2025-09-21 11:58] LABS: RBC Morphology Normal; Total Cells Counted 100
== END 2025-09-21 23:59 | disposition home or self-care (01) ==
LOC: LAB 09:15
PROVIDERS: PCP Family Medicine; Visit Provider Surgery
DX: K43.9 Ventral hernia without obstruction or gangrene (principal)
CPT/HCPCS: 36415; 80048; 85007; 85014; 85018; 85048; 85049